=== PATIENT | male | born 1965 | race Caucasian/White ===

== ENCOUNTER 2020-06-08 21:47 | Inpatient (IN) | payer MEDICAID, OTHER ==
[~2020-06-08] VITALS: Ht 170 cm; Wt 101.3 kg
[2020-06-08] MEDS ORDERED: LACTATED RINGERS 1,000 ML IV ONE ×3 (21:52→22:15)
[2020-06-08] MEDS ORDERED: morphine INJ 10 MG/ML 1ML (SYR OR VIAL) ONE (22:00)
[2020-06-08] MEDS ORDERED: methylPREDNISolone 125 MG (Solu-MEDROL) VIAL ONE (22:00)
[2020-06-08] MEDS ORDERED: morphine INJ 10 MG/ML 1ML (SYR OR VIAL) IVP STA (22:03)
[2020-06-08] MEDS ORDERED: RT-ALBUTEROL SULF 2.5 MG/3 ML PRE-MIX VIAL INH STA (22:03)
--- NOTE | 2020-06-08 22:08 | ED Respiratory ---
General Stated Complaint: COVID SYMPTOMS Source: patient Exam Limitations: no limitations History of Present Illness Date Seen by Provider: Jun 08, 2020 Time Seen by Provider: 21:33 Initial Comments Patient presents to ER by EMS from home with chief complaint of shortness of breath, wheezing, nonproductive cough nausea without vomiting and a few episodes of diarrhea starting this afternoon. He is not having any nausea presently. EMS heard wheezing bilaterally so we gave him a dose of albuterol en route. They were unable to obtain an IV site. Patient says he has had one stent placed in the past but is no longer on Plavix or aspirin. 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 He recently moved to the area a month ago. He has not established primary care yet. He's had chills and subjective fevers today. No dysuria. He smokes about 2 packs a day and has a history of COPD. He was post to be on CPAP to sleep at night but did not tolerated secondary to it frequently leaking fluid all over him. He has not been wearing it for the past year or so. He says he has pain in the right side of his chest on deep inspiration. Allergies and Home Medications Allergies Coded Allergies: No Known Drug Allergies (Unverified , 06/08/20) Patient Home Medication List Home Medication List Reviewed: Yes Review of Systems Review of Systems Constitutional: chills, fever, malaise EENTM: No ear discharge, No ear pain Respiratory: cough; No phlegm; short of breath, wheezing Cardiovascular: No chest pain, No palpitations Gastrointestinal: No abdominal pain, No dysphagia, No loss of appetite Genitourinary: No discharge, No dysuria Musculoskeletal: No back pain, No joint pain Skin: No pruritus, No rash Psychiatric/Neurological: Denies Headache, Denies Numbness All Other Systems Reviewed Negative Unless Noted: Yes Past Gxcwzcy-Xavyzq-[id number] Hx Patient Social History Alcohol Use: Denies Use Recreational Drug Use: No Smoking Status: Current Everyday Smoker Type Used: Cigarettes (2 ppd) Physical Exam Vital Signs - First Documented 06/08/20 21:50 Temp 38.1 Pulse 100 Resp 30 B/P (MAP) 120/70 (87) Pulse Ox 97 O2 Delivery Nasal Cannula O2 Flow Rate 2.00 Capillary Refill : Height: '" Weight: lbs. oz. kg; BMI Method: General Appearance: WD/WN, obese Eyes: Bilateral Eye Normal Inspection, Bilateral Eye PERRL, Bilateral Eye EOMI HEENT: PERRL/EOMI, normal ENT inspection, pharynx normal Neck: full range of motion, supple, normal inspection Respiratory: respiratory distress (35 breaths per minute), decreased breath s ounds (right), accessory muscle use, wheezing (left worse than right) Cardiovascular: normal peripheral pulses, regular rate, rhythm Gastrointestinal: normal bowel sounds, non tender, soft Neurologic/Psychiatric: no motor/sensory deficits, alert, normal mood/affect, oriented x 3 Skin: normal color, warm/dry Focused Exam Sepsis Stage: Severe Sepsis Possible Source: Pulmonary Lactate Level 06/08/20 21:55: Lactic Acid Level 3.26*H Time of Focused Exam: 23:30 Respiratory: No Accessory Muscle Use, Respiratory Distress (mild on 2l 98%), Wheezing Cardiovascular: Regular Rate, Rhythm, No Edema, Normal Peripheral Pulses Capillary Refill: Less Than 3 Seconds Peripheral Pulses: 2+ Radial Pulses (R), 2+ Radial Pulses (L) Skin: normal color, warm/dry Lactic Acid Level Laboratory Tests Test 06/08/20 21:55 Lactic Acid Level 3.26 MMOL/L (0.50-2.00) *H Within 3hrs of presentation: Admin fluids, Admin ABX, Blood cultures prior to ABX's, Focus exam, Lactate level Progress/Results/Core Measures Suspected Sepsis SIRS Temperature: Pulse: Respiratory Rate: Laboratory Tests 06/08/20 21:55: White Blood Count 15.4H Blood Pressure / Mean: 06/08/20 21:55: Lactic Acid Level 3.26*H Laboratory Tests 06/08/20 21:55: Creatinine 0.98, INR Comment 1.0, Platelet Count 304, Total Bilirubin 0.9 Results/Orders Lab Results Laboratory Tests Test 06/08/20 21:55 06/08/20 22:07 06/08/20 22:22 Range/Units White Blood Count 15.4 H 4.3-11.0 10^3/uL Red Blood Count 4.50 4.30-5.52 10^6/uL Hemoglobin 14.3 13.3-17.7 g/dL Hematocrit 42 40-54 % Mean Corpuscular Volume 93 80-99 fL Mean Corpuscular Hemoglobin 32 25-34 pg Mean Corpuscular Hemoglobin Concent 34 32-36 g/dL Red Cell Distribution Width 13.0 10.0-14.5 % Platelet Count 304 130-400 10^3/uL Mean Platelet Volume 9.4 9.0-12.2 fL Immature Granulocyte % (Auto) 0 % Neutrophils (%) (Auto) 86 H 42-75 % Lymphocytes (%) (Auto) 7 L 12-44 % Monocytes (%) (Auto) 5 0-12 % Eosinophils (%) (Auto) 1 0-10 % Basophils (%) (Auto) 0 0-10 % Neutrophils # (Auto) 13.3 H 1.8-7.8 10^3/uL Lymphocytes # (Auto) 1.1 1.0-4.0 10^3/uL Monocytes # (Auto) 0.8 0.0-1.0 10^3/uL Eosinophils # (Auto) 0.2 0.0-0.3 10^3/uL Basophils # (Auto) 0.0 0.0-0.1 10^3/uL Immature Granulocyte # (Auto) 0.1 0.0-0.1 10^3/uL Neutrophils % (Manual) 80 % Lymphocytes % (Manual) 5 % Monocytes % (Manual) 3 % Eosinophils % (Manual) 2 % Basophils % (Manual) 0 % Band Neutrophils 8 % Reactive Lymphocytes 2 % Rouleau SLIGHT Prothrombin Time 13.8 12.2-14.7 SEC INR Comment 1.0 0.8-1.4 Activated Partial Thromboplast Time 29 24-35 SEC Sodium Level 129 L 135-145 MMOL/L Potassium Level 3.3 L 3.6-5.0 MMOL/L Chloride Level 94 L 98-107 MMOL/L Carbon Dioxide Level 21 21-32 MMOL/L Anion Gap 14 5-14 MMOL/L Blood Urea Nitrogen 14 7-18 MG/DL Creatinine 0.98 0.60-1.30 MG/DL Estimat Glomerular Filtration Rate > 60 BUN/Creatinine Ratio 14 Glucose Level 233 H 70-105 MG/DL Lactic Acid Level 3.26 *H 0.50-2.00 MMOL/L Calcium Level 8.8 8.5-10.1 MG/DL Corrected Calcium 8.9 8.5-10.1 MG/DL Magnesium Level 1.6 1.6-2.4 MG/DL Total Bilirubin 0.9 0.1-1.0 MG/DL Aspartate Amino Transf (AST/SGOT) 21 5-34 U/L Alanine Aminotransferase (ALT/SGPT) 17 0-55 U/L Alkaline Phosphatase 80 40-136 U/L Troponin I < 0.028 <0.028 NG/ML Total Protein 6.8 6.4-8.2 GM/DL Albumin 3.9 3.2-4.5 GM/DL Coronavirus 2019 (EVANS) Negative Negative Blood Gas Puncture Site RT RAD Blood Gas Patient Temperature 38.1 Arterial Blood pH 7.37 7.37-7.43 Arterial Blood Partial Pressure CO2 44 35-45 MMHG Arterial Blood Partial Pressure O2 133 H 79-93 MMHG Arterial Blood HCO3 24 23-27 MMOL/L Arterial Blood Total CO2 25.6 21.0-31.0 MMOL/L Arterial Blood Oxygen Saturation 99 94-100 % Arterial Blood Base Excess -0.1 -2.5-2.5 MMOL/L Kurt Test POS Blood Gas Ventilator Setting NO Blood Gas Inspired Oxygen 2L Micro Results Microbiology 06/08/20 Influenza Types A,B Antigen (KATIUSKA) - Final, Complete My Orders Orders - VIKAS SAVAGE Lactated Ringers (Lr 1000 Ml Iv Solution (06/08/20 21:52) Covid 19 Inhouse Test (06/08/20 22:01) Influenza A And B Antigens (06/08/20 22:01) Morphine Injection (Morphine Injection (06/08/20 22:00) Methylprednisolone Sod Succ (Solu-Medrol (06/08/20 22:00) Cbc With Automated Diff (06/08/20 22:03) Comprehensive Metabolic Panel (06/08/20 22:03) Blood Culture (06/08/20 22:03) Sputum Culture (06/08/20 22:03) Urinalysis (06/08/20 22:03) Urine Culture (06/08/20 22:03) Protime With Inr (06/08/20 22:03) Partial Thromboplastin Time (06/08/20 22:03) Chest 1 View, Ap/Pa Only (06/08/20 22:03) Ed Iv/Invasive Line Start (06/08/20 22:03) Ed Iv/Invasive Line Start (06/08/20 22:03) Ekg Tracing (06/08/20 22:03) Troponin I (12/3/20 22:03) Vital Signs Adult Sepsis Patie Q15M (06/08/20 22:03) O2 (06/08/20 22:03) Remove Rings In Anticipation O (06/08/20 22:03) Lactic Acid Analyzer (06/08/20 22:03) Lactated Ringers (Lr 1000 Ml Iv Solution (06/08/20 22:15) Lactated Ringers (Lr 1000 Ml Iv Solution (06/08/20 22:15) Morphine Injection (Morphine Injection (06/08/20 22:03) Methylprednisolone Sod Succ (Solu-Medrol (06/08/20 22:15) Albuterol Pre-Mix Nebs (Rt) (Proventil (06/08/20 22:03) Albuterol/Ipra Inhalation Soln (Duoneb I (06/08/20 22:15) Rt Request For Service (06/08/20 22:03) Svn Small Volume Nebulizer (06/08/20 22:03) Arterial Blood Gas (06/08/20 22:08) Aspirin Chewable Tablet (Baby Aspirin Ch (06/08/20 22:15) Acetaminophen Tablet (Tylenol Tablet) (06/08/20 22:15) Aspirin Tablet (Aspirin Tablet) (06/08/20 22:12) Manual Differential (06/08/20 21:55) Ed Iv/Invasive Line Start (06/08/20 22:35) Ns Iv 1000 Ml (Sodium Chloride 0.9%) (06/08/20 22:45) Magnesium (06/08/20 22:36) Cefepime Injection (Maxipime Injection) (06/08/20 23:15) Vancomycin Injection (Vancomycin Injecti (06/08/20 23:15) Medications Given in ED Current Medications Medications Dose Ordered Sig/Parul Route Start Time Stop Time Status Last Admin Dose Admin Acetaminophen 1,000 mg ONCE ONCE PO 06/08/20 22:15 06/08/20 22:16 DC 06/08/20 22:19 1,000 MG Aspirin 324 mg ONCE ONCE PO 06/08/20 22:15 06/08/20 22:16 DC 06/08/20 22:16 324 MG Lactated Ringer's 1,000 ml @ 0 mls/hr Q0M ONCE IV 12/3/20 22:15 06/08/20 22:16 DC 06/08/20 22:10 999 MLS/HR Methylprednisolone Sodium Succinate 125 mg ONCE ONCE IVP 06/08/20 22:15 06/08/20 22:16 DC 06/08/20 22:09 125 MG Vital Signs/I&O 06/08/20 06/08/20 06/08/20 06/08/20 21:50 21:55 22:19 22:43 Temp 38.1 38.1 Pulse 100 Resp 30 B/P (MAP) 120/70 (87) Pulse Ox 97 97 98 O2 Delivery Nasal Cannula Nasal Cannula O2 Flow Rate 2.00 2.00 6.00 06/08/20 23:00 Temp 37.6 Pulse 105 Resp 24 B/P (MAP) 113/66 Pulse Ox 98 O2 Delivery Nasal Cannula Capillary Refill : Progress Note : Time: 23:02 Progress Note Patient's oxygen sats were 93-94% on room air after an albuterol by EMS on route. We put him on 2 L for comfort since he was tachypneic obtained an ABG and give him an hour-long breathing treatment. When that is done we'll put him on CPAP to sleep tonight. ABG does not look terrible he has mild retention of CO2 but has not caused him to be acidotic yet. Aspirin and Tylenol were given for his heart and fever. His chest pain appears to be pleuritic and related to deep inspiration but with his coronary history we will go ahead and work him up for this at the same time with a troponin and BNP. Because of his fever suspect influenza or COVID-19 versus pneumonia. Because of his elevated lactic acid and modest white cell count we will also cover him with broad-spectrum antibiotics against pneumonia. ECG Initial ECG Impression Date: Jun 08, 2020 Initial ECG Impression Time: 22:11 Initial ECG Rate: 110 Initial ECG Rhythm: S.Tach Initial ECG Intervals: QT (471) Initial ECG Impression: Nonspecific Changes Initial ECG Comparisson: No Previous ECG Available Comment Frequent PVCs. No clinically relevant ST changes. Sinus tachycardia. Prolonged QTC. Diagnostic Imaging Diagonstic Imaging: Xray Plain Films/CT/US/NM/MRI: chest Reviewed: Reviewed by Me Departure Communication (Admissions) Time/Spoke to Admitting Phy: 23:20 Discussed the case with Dr. Jose and she agrees to take on the case in the ICU. She agrees with broad-spectrum antibiotics, Solu-Medrol, eICU consultation, delta troponins. Pending send out COVID-19. Impression Primary Impression: Pneumonia Qualified Codes: J18.9 - Pneumonia, unspecified organism Additional Impressions: Person under investigation for COVID-19 Acute on chronic respiratory failure with hypoxemia COPD exacerbation Chest pain made worse by breathing Severe sepsis Disposition: ADMITTED INPATIENT Condition: Stable Admissions Decision to Admit Reason: Admit from ER (General) Decision to Admit/Date: Jun 08, 2020 Time/Decision to Admit Time: 22:41 VIKAS SAVAGE Jun 08, 2020 22:08
[2020-06-08 22:10] LABS: BASOPHILS % (AUTO) 0 % (0-10); EOSINOPHILS # (AUTO) 0.2 10^3/uL (0.0-0.3); EOSINOPHILS % (AUTO) 1 % (0-10); HEMATOCRIT 42 % (40-54); HEMOGLOBIN 14.3 g/dL (13.3-17.7); LYMPHOCYTES # (AUTO) 1.1 10^3/uL (1.0-4.0); LYMPHOCYTES % (AUTO) 7 % (12-44); MEAN CORPUSCULAR HEMOGLOBIN 32 pg (25-34); MEAN CORPUSCULAR HGB CONC 34 g/dL (32-36); MEAN CORPUSCULAR VOLUME 93 fL (80-99); MEAN PLATELET VOLUME 9.4 fL (9.0-12.2); MONOCYTES # (AUTO) 0.8 10^3/uL (0.0-1.0); MONOCYTES % (AUTO) 5 % (0-12); NEUTROPHILS # (AUTO) 13.3 10^3/uL (1.8-7.8); NEUTROPHILS % (AUTO) 86 % (42-75); PLATELET COUNT 304 10^3/uL (130-400); WHITE BLOOD COUNT 15.4 10^3/uL (4.3-11.0)
[2020-06-08] MEDS ORDERED: ASPIRIN 325 MG (5 GR) TABLET ONE (22:12)
[2020-06-08] MEDS ORDERED: RT-ALBUTEROL/IPRATROPIUM 3 ML (DUONEB) VIAL INH ONE (22:15)
[2020-06-08] MEDS ORDERED: ASPIRIN 81 MG CHEW (CHILDREN'S ASA) PO ONE (22:15)
[2020-06-08] MEDS ORDERED: ACETAMINOPHEN 500 MG TAB (TYLENOL) PO ONE (22:15)
[2020-06-08] MEDS ORDERED: methylPREDNISolone 125 MG (Solu-MEDROL) VIAL IVP ONE (22:15)
[2020-06-08 22:19] LABS: PROTHROMBIN TIME PATIENT 13.8 SEC (12.2-14.7)
[2020-06-08 22:30] LABS: ABG BASE EXCESS -0.1 MMOL/L (-2.5-2.5); ABG OXYGEN SATURATION 99 % (94-100); ABG PCO2 44 MMHG (35-45); ABG PH 7.37 (7.37-7.43); ABG PO2 133 MMHG (79-93); ABG TCO2 25.6 MMOL/L (21.0-31.0)
[2020-06-08 22:31] LABS: ALANINE AMINOTRANSFERASE 17 U/L (0-55); ALBUMIN 3.9 GM/DL (3.2-4.5); ALKALINE PHOSPHATASE 80 U/L (40-136); BILIRUBIN,TOTAL 0.9 MG/DL (0.1-1.0); BUN/CREATININE RATIO 14; CALCIUM 8.8 MG/DL (8.5-10.1); CARBON DIOXIDE 21 MMOL/L (21-32); CHLORIDE 94 MMOL/L (98-107); CREATININE SERUM 0.98 MG/DL (0.60-1.30); GFR ESTIMATED > 60; GLUCOSE 233 MG/DL (70-105); POTASSIUM 3.3 MMOL/L (3.6-5.0); SODIUM 129 MMOL/L (135-145); TOTAL PROTEIN 6.8 GM/DL (6.4-8.2)
[2020-06-08 22:33] LABS: BAND NEUTROPHILS 8 %; BASOPHILS % (MANUAL) 0 %; EOSINOPHILS % (MANUAL) 2 %; LYMPHOCYTES % (MANUAL) 5 %; MONOCYTES % (MANUAL) 3 %; NEUTROPHILS % (MANUAL) 80 %; REACTIVE LYMPHOCYTES 2 %; ROULEAUX SLIGHT
[2020-06-08 22:41] LABS: ALLENS TEST POS; INSPIRED O2 2L; PATIENT TEMP 38.1; VENTILATOR NO
[2020-06-08] MEDS ORDERED: NS IV 1000 ML 1,000 ML IV SCH (22:45)
[2020-06-08] MEDS ORDERED: CEFEPIME INJECTION 1,000 MG in WATER (STERILE) FOR INJECTION 10 ML IV ONE (23:15)
[2020-06-08] MEDS: VANCOMYCIN INJECTION 1,000 MG in NS (IVPB) 250 ML IV SCH (23:32)
[2020-06-08 23:52] LABS: BILIRUBIN,URINE NEGATIVE (NEGATIVE); CLARITY,URINE CLEAR; COLOR,URINE YELLOW; GLUCOSE, URINE (UA) 1+ (NEGATIVE); KETONES,URINE NEGATIVE (NEGATIVE); LEUKOCYTE ESTERASE ,URINE NEGATIVE (NEGATIVE); NITRITE,URINE NEGATIVE (NEGATIVE); PROTEIN,URINE NEGATIVE (NEGATIVE)
[2020-06-09 00:02] LABS: AMORPHOUS SEDIMENT,UR RARE AMOR URATES /LPF; BACTERIA,URINE TRACE /HPF; RBC,URINE 0-2 /HPF; WBC,URINE 0-2 /HPF
[2020-06-09] MEDS ORDERED: ONDANSETRON 4 MG/2 ML (SDV) Z0FRAN ONE (00:37)
[2020-06-09] MEDS ORDERED: VANCOMYCIN 1000 MG/VIAL ONE (00:45)
[2020-06-09] MEDS ORDERED: ONDANSETRON 4 MG/2 ML (SDV) Z0FRAN IVP ONE (00:45)
[2020-06-09] MEDS ORDERED: NS (IVPB) 250 ML ONE (00:45)
[2020-06-09] MEDS: VANCOMYCIN INJECTION 1,000 MG in NS (IVPB) 250 ML IV SCH (01:00)
--- NOTE | 2020-06-09 01:15 | NUR ---
Pt admitted to icu rm 5 from e.d. by wheelchair for copd exacerbation, pneumonia, covid PUI, sepsis, acute on chronic renal failure, hypoxia. pt transferred to bed with sba x1. monitors applied, room/unit orientation provided. pt given admission booklet et. demonstrated bed/call light use. no questions at this time.
[2020-06-09 01:17] VITALS: BP 113/69
[2020-06-09] MEDS ORDERED: ONDANSETRON 4 MG/2 ML (SDV) Z0FRAN IVP PRN (01:30)
[2020-06-09] MEDS ORDERED: ACETAMINOPHEN 500 MG TAB (TYLENOL) PO PRN (01:30)
[2020-06-09] MEDS: LACTATED RINGERS 1,000 ML IV SCH ×4 (03:53→22:45)
--- NOTE | 2020-06-09 03:56 | Pulmonary Consultation ---
XOCHITL AVINA,MED STUDENT 06/09/20 0356: History of Present Illness History of Present Illness Date Seen by Provider: Jun 09, 2020 Time Seen by Provider: 03:20 Date of Admission 06/08/20 History of Present Illness Patient is 55yo male who presented to [facility] ED via EMS c/o SOB, wheezing, nonproductive cough, nausea, and R sided chest pain that began yesterday afternoon 06/08. Patient also reported chills and subjective fevers. He has a history of COPD and admits smoking 2 PPD, and has worn a CPAP at night in the past but has not in the last year. EMS gave albuterol due to wheezing, and SpO2 was 93-94%. He was given a breathing treatment in the ED and placed on 2L oxygen. Labs revealed an elevated WBC and lactic acid, so he was started on vanc and cefepime. He also reported a history of one stent placed but is not currently on antiplatelet therapy, so troponin was obtained, which was negative. SpO2 is currently 93-95% on room air. Allergies and Home Medications Allergies Coded Allergies: No Known Drug Allergies (Unverified , 06/08/20) Home Medications Albuterol Sulfate 1 Puff Puff, 2 PUFF INH Q4H PRN for SHORTNESS OF BREATH, (Reported) Aspirin 81 Mg Tab.chew, 81 MG PO DAILY, (Reported) Clonazepam 1 Mg Tablet, 0.5 MG PO DAILY, (Reported) Clonazepam 1 Mg Tablet, 2 MG PO HS, (Reported) TAKES 2 (1MG) TABS Diclofenac Sodium 100 Gm Gel..gram., 2 GM TD TID PRN for PAIN-BREAKTHROUGH, (Reported) Duloxetine HCl 60 Mg Capsule.dr, 60 MG PO HS, (Reported) Fenofibrate Nanocrystallized 48 Mg Tablet, 48 MG PO DAILY, (Reported) Hydrochlorothiazide 12.5 Mg Tablet, 12.5 MG PO DAILY, (Reported) Levetiracetam 500 Mg Tablet, 500 MG PO BID, (Reported) Levothyroxine Sodium 112 Mcg Tablet, 112 MCG PO DAILY, (Reported) Lisinopril 20 Mg Tablet, 20 MG PO DAILY, (Reported) Metoprolol Tartrate 25 Mg Tablet, 25 MG PO BID, (Reported) Mometasone/Formoterol 13 Gm Hfa.aer.ad, 2 PUFF INH BID, (Reported) Oxycodone HCl 30 Mg Tablet, 30 MG PO Q6H, (Reported) Potassium Chloride 10 Meq Tab.er.prt, 10 MEQ PO DAILY, (Reported) Tamsulosin HCl 0.4 Mg Cap, 0.4 MG PO DAILY, (Reported) Thiamine HCl 100 Mg Tablet, 100 MG PO DAILY, (Reported) Tiotropium [place] 1 Inh Aerp, 1 PUFF INH DAILY, (Reported) Past [id number] Hx Patient Social History Alcohol Use: Denies Use Recreational Drug Use: No Smoking Status: Current Everyday Smoker Type Used: Cigarettes (2 ppd) Recent Foreign Travel: No Contact w/Someone Who Travel: No Recent Infectious Disease Expo: No Recent Hopitalizations: No Seasonal Allergies Seasonal Allergies: No Past Medical History Surgeries: No Respiratory: Yes COPD Cardiac: Yes Coronary Artery Disease, Hypertension Neurological: No Genitourinary: No Gastrointestinal: No Musculoskeletal: No Endocrine: No HEENT: No Cancer: No Psychosocial: No Integumentary: No Blood Disorders: No Sepsis Event Evaluation Height, Weight, BMI Height: '" Weight: lbs. oz. kg; 34.00 BMI Method: Exam Exam Vital Signs Date Time Temp Pulse Resp B/P (MAP) Pulse Ox O2 Delivery O2 Flow Rate FiO2 06/09/20 01:23 95 Room Air 06/09/20 01:18 36.1 90 20 113/69 93 Room Air 06/09/20 01:17 36.1 90 20 113/69 (84) 93 Room Air 06/09/20 01:15 86 06/09/20 00:06 90 20 115/64 95 Nasal Cannula 06/08/20 23:47 36.7 110 16 115/64 98 Nasal Cannula 2.00 06/08/20 23:38 36.7 06/08/20 23:00 37.6 105 24 113/66 98 Nasal Cannula 06/08/20 22:43 98 6.00 06/08/20 22:19 38.1 06/08/20 21:55 97 Nasal Cannula 2.00 06/08/20 21:50 38.1 100 30 120/70 (87) 97 Nasal Cannula 2.00 I & O 06/09/20 07:00 Intake Total 2410 ml Output Total 950 ml Balance 1460 ml Height & Weight Height: '" Weight: lbs. oz. kg; 34.00 BMI Method: Respiratory: No Accessory Muscle Use, Respiratory Distress (mild on 2l 98%), Wheezing Cardiovascular: Regular Rate, Rhythm, No Edema, Normal Peripheral Pulses Capillary Refill: Less Than 3 Seconds Peripheral Pulses: 2+ Radial Pulses (R), 2+ Radial Pulses (L) Gastrointestinal: normal bowel sounds, non tender, soft Results Lab Laboratory Tests 06/08/20 21:55 GEORGINA ALANIZ 06/09/20 1045: Allergies and Home Medications Allergies Coded Allergies: No Known Drug Allergies (Unverified , 06/08/20) Home Medications Albuterol Sulfate 1 Puff Puff, 2 PUFF INH Q4H PRN for SHORTNESS OF BREATH, (Reported) Aspirin 81 Mg Tab.chew, 81 MG PO DAILY, (Reported) Clonazepam 1 Mg Tablet, 0.5 MG PO DAILY, (Reported) Clonazepam 1 Mg Tablet, 2 MG PO HS, (Reported) TAKES 2 (1MG) TABS Diclofenac Sodium 100 Gm Gel..gram., 2 GM TD TID PRN for PAIN-BREAKTHROUGH, (Reported) Duloxetine HCl 60 Mg Capsule.dr, 60 MG PO HS, (Reported) Fenofibrate Nanocrystallized 48 Mg Tablet, 48 MG PO DAILY, (Reported) Hydrochlorothiazide 12.5 Mg Tablet, 12.5 MG PO DAILY, (Reported) Levetiracetam 500 Mg Tablet, 500 MG PO BID, (Reported) Levothyroxine Sodium 112 Mcg Tablet, 112 MCG PO DAILY, (Reported) Lisinopril 20 Mg Tablet, 20 MG PO DAILY, (Reported) Metoprolol Tartrate 25 Mg Tablet, 25 MG PO BID, (Reported) Mometasone/Formoterol 13 Gm Hfa.aer.ad, 2 PUFF INH BID, (Reported) Oxycodone HCl 30 Mg Tablet, 30 MG PO Q6H, (Reported) Potassium Chloride 10 Meq Tab.er.prt, 10 MEQ PO DAILY, (Reported) Tamsulosin HCl 0.4 Mg Cap, 0.4 MG PO DAILY, (Reported) Thiamine HCl 100 Mg Tablet, 100 MG PO DAILY, (Reported) Tiotropium [place] 1 Inh Aerp, 1 PUFF INH DAILY, (Reported) Assessment/Plan Assessment/Plan PNA with severe sepsis - Continue Vanco and Cefepime for now -IVF -Monitor -R/o COVID COPD exacerbation -Solumedrol -Add advair and albuterol Ischemic cardiopmyopathy HTN CAD Alcoholic abuse with h/o pancreatitis Hyponatremia Monitor Tobacco abuse -Education XOCHITL AVINA,MED STUDENT Jun 09, 2020 03:56 GEORGINA ALANIZ DO Jun 09, 2020 10:45
[2020-06-09 04:23] LABS: BASOPHILS % (AUTO) 0 % (0-10); HEMOGLOBIN 13.1 g/dL (13.3-17.7); LYMPHOCYTES % (AUTO) 4 % (12-44); NEUTROPHILS % (AUTO) 95 % (42-75)
[2020-06-09 04:25] LABS: EOSINOPHILS % (AUTO) 0 % (0-10); HEMATOCRIT 39 % (40-54); LYMPHOCYTES # (AUTO) 0.6 10^3/uL (1.0-4.0); MEAN CORPUSCULAR HEMOGLOBIN 32 pg (25-34); MEAN CORPUSCULAR HGB CONC 34 g/dL (32-36); MEAN CORPUSCULAR VOLUME 93 fL (80-99); MEAN PLATELET VOLUME 9.7 fL (9.0-12.2); MONOCYTES # (AUTO) 0.1 10^3/uL (0.0-1.0); MONOCYTES % (AUTO) 1 % (0-12); NEUTROPHILS # (AUTO) 14.5 10^3/uL (1.8-7.8); PLATELET COUNT 257 10^3/uL (130-400); WHITE BLOOD COUNT 15.3 10^3/uL (4.3-11.0)
[2020-06-09 04:56] LABS: CHLORIDE 99 MMOL/L (98-107); SODIUM 132 MMOL/L (135-145)
[2020-06-09 04:57] LABS: CALCIUM 7.9 MG/DL (8.5-10.1)
[2020-06-09 04:58] LABS: GLUCOSE 194 MG/DL (70-105)
[2020-06-09 04:59] LABS: CARBON DIOXIDE 22 MMOL/L (21-32)
[2020-06-09 05:01] LABS: CREATININE SERUM 0.76 MG/DL (0.60-1.30); GFR ESTIMATED > 60; PHOSPHORUS 1.9 MG/DL (2.3-4.7)
[2020-06-09 05:02] LABS: BUN/CREATININE RATIO 13
[2020-06-09] MEDS: POTASSIUM CL 10MEQ/50ML IVPB 50 ML IV SCH (05:22)
[2020-06-09] MEDS: KCL 20 MEQ TAB (K-DUR) PO SCH (05:23)
[2020-06-09] MEDS: MAGNESIUM 1 GM/100 ML IVPB 100 ML IV SCH (05:23)
[2020-06-09] MEDS: methylPREDNISolone 40 MG/ML (Solu-MEDROL) VIAL IV SCH ×4 (05:50→23:24)
[2020-06-09] MEDS: CEFEPIME 1,000 MG/SWFI 10 ML IV PUSH IV SCH ×8 (05:50→23:24)
--- NOTE | 2020-06-09 06:15 | NUR ---
mrsa swab collected/sent.
[2020-06-09] MEDS ORDERED: FLU QUADRIvalent (3YOA+) 60 mcg/0.5 ml 2020-21 (AFLURIA) IM ONE (07:00)
--- NOTE | 2020-06-09 07:00 | Diagnostic Imaging Report ---
EXAMINATION: Chest radiograph, portable AP view. DATE: 06/09/2020 12:15 AM INDICATION: 55-year-old male, shortness of breath and cough. COMPARISON: None. FINDINGS: There is airspace consolidation in the left lung base. Heart size and mediastinal contours are unremarkable. There is no identified pneumothorax. There is no large pleural effusion. There is cervical spine hardware noted. IMPRESSION: 1. Left lower lobe airspace consolidation which may relate to pneumonia, aspiration, or other alveolar consolidative process, and/or atelectasis. Dictated by: Dictated on workstation # [id number]
--- NOTE | 2020-06-09 07:02 | NUR ---
VANCOMYCIN TROUGH DUE 06/10 @ 1000. IF TROUGH IS >20, HOLD DOSE & NOTIFY PHARMACY FOR ADJUSTMENTS.
--- NOTE | 2020-06-09 08:19 | History & Physical-Hospitalist ---
History of Present Illness HPI/Chief Complaint Pt is a 55yoCM with a PMH of COPD, CAD s/p stent, alcoholic liver disease, ischemic cardiomyopathy, HTN, HLD, seizure disorder who presented to the ER due to fever and shortness of breath. He states he has COPD and has some dyspnea on exertion at baseline but was much more dyspneic last night. He also developed a fever of 102.2 at home. On arrival to the ER he remained febrile at 38.1. He was hypoxic and required 6lpm HFNC to maintain oxygen saturation but with an hour long breathing treatment and IV steroids he was able to be taken off oxygen. He reports feeling better this morning but still unable to abluate much without dyspnea. He reports multiple known COVID contacts from 06/03 but that his fever only started yesterday. He was found to have pneumonia on CXR and was admitted to the ICU for further management. Source: patient Date Seen 06/09/20 Time Seen by a Provider: 08:11 Attending Physician Tatiana Jose MD PCP Referring Physician Date of Admission Jun 08, 2020 at 23:15 Home Medications & Allergies Home Medications Reviewed patient Home Medication Reconciliation performed by pharmacy medication reconciliations electromechanical assembly technician and/or nursing. Patients Allergies have been reviewed. Allergies Allergies Coded Allergies No Known Drug Allergies (Tevjikrdxs50/3/20) Past Qfeeemk-Jbniwn-Abpjqc Hx Past Med/Social Hx: Reviewed Nursing Past Med/Soc Hx Patient Social History Alcohol Use: Regular Use (cut back from 30 pack per day x30 years 2-3 weeks ago to 1-2 drinks per day) Recreational Drug Use: No Smoking Status: Current Everyday Smoker Cigaretts per day: 50 Type Used: Cigarettes (2 ppd) Recent Foreign Travel: No Contact w/other who traveled: No Recent Hopitalizations: No Recent Infectious Disease Expo: No Seasonal Allergies Seasonal Allergies: No Past Medical History Surgeries: Cardiac, Coronary Stent Respiratory: COPD Cardiac: Cardiomyopathy, Coronary Artery Disease, Heart Attack, High Chol esterol, Hypertension Neurological: Seizure Disorder Genitourinary: Benign Prostatic Hyperpl Gastrointestinal: Pancreatitis History of Blood Disorders: No Family History Reviewed Nursing Family Hx No Pertinent Family Hx Review of Systems Constitutional: fever, weakness EENTM: no symptoms reported Respiratory: cough, dyspnea on exertion; No orthopnea, No phlegm; short of breath, wheezing Cardiovascular: No chest pain; Hx of Intervention; No palpitations Gastrointestinal: No abdominal pain, No nausea, No vomiting Genitourinary: no symptoms reported Musculoskeletal: no symptoms reported Skin: no symptoms reported Psychiatric/Neurological: No Symptoms Reported Physical Exam Physical Exam Vital Signs Vital Signs - First Documented 06/08/20 21:50 Temp 38.1 Pulse 100 Resp 30 B/P (MAP) 120/70 (87) Pulse Ox 97 O2 Delivery Nasal Cannula O2 Flow Rate 2.00 Capillary Refill : Less Than 3 Seconds Height, Weight, BMI Height: '" Weight: lbs. oz. kg; 34.00 BMI Method: General Appearance: No Apparent Distress, WD/WN, Obese HEENT: PERRL/EOMI, Moist Mucous Membranes; No Scleral Icterus (L), No Scleral Icterus (R) Neck: Normal Inspection, Supple Respiratory: No Accessory Muscle Use, Decreased Breath Sounds, Wheezing (scant expiratory) Cardiovascular: Regular Rate, Rhythm, No JVD, No Murmur, Normal Peripheral Pulses Gastrointestinal: Normal Bowel Sounds, Non Tender, Soft Extremity: Normal Capillary Refill, No Calf Tenderness, No Pedal Edema Neurologic/Psychiatric: Alert, Oriented x3, Normal Mood/Affect Skin: Normal Color, Warm/Dry; No Diaphoresis, No Mottled; Tattoos/Piercings Lymphatic: No Adenopathy Results Results/Procedures Labs Laboratory Tests 06/08/20 21:55 06/09/20 03:55 Patient resulted labs reviewed. Imaging: Reviewed Imaging Report Imaging [facility], [place] NAME: [facility] REC#: [id number] PT STATUS: ADM IN : 1965 PHYSICIAN: VIKAS SAVAGE MD ADMIT DATE: 06/08/20/ICU Draft Date of Exam:06/09/20 CHEST 1 VIEW, AP/PA ONLY EXAMINATION: Chest radiograph, portable AP view. DATE: 06/09/2020 12:15 AM INDICATION: 55-year-old male, shortness of breath and cough. COMPARISON: None. FINDINGS: There is airspace consolidation in the left lung base. Heart size and mediastinal contours are unremarkable. There is no identified pneumothorax. There is no large pleural effusion. There is cervical spine hardware noted. IMPRESSION: 1. Left lower lobe airspace consolidation which may relate to pneumonia, aspiration, or other alveolar consolidative process, and/or atelectasis. Dictated on workstation # [id number] Dict: 06/09/20 0653 Trans: 06/09/20 0700 [facility] [id number] Interpreted by: ROSETTA MORTON MD Electronically signed by: Assessment/Plan Admission Diagnosis Severe Sepsis Admission Status: Inpatient Order (span 2 midnights) Reason for Inpatient Admission: see below Assessment and Plan Severe Sepsis from LLL CAP COVID PUI COPD exacerbation with LRTI Acute hypoxic respiratory failure- resolved Febrile, tachycardiac, and tachypneic on arrival with leukocytosis LLL PNA on CXR Lactic acidosis 3.26, improving Continue IV abx, await cultures Rapid COVID negative, await PCR Given high risk exposure and only 5 days after exposure when test done will repeat PCR if negative Continue solu-medrol Pulm consulted, appreciate recs Ischemic cardiopmyopathy, compensated HTN CAD Reports recent [place] within 6 months that he was "in coma" following Troponin negative Resume home meds when able Alcoholic abuse disorder h/o pancreatitis Hyponatremia Encourage continued weaning of alcohol use Alcohol level drawn from blood on arrival, pending Continue IVF Tobacco abuse Smokes 2-2.5ppd, encouraged cessation Diagnosis/Problems Diagnosis/Problems (1) CAD (coronary artery disease) Qualifiers: Coronary Disease-Associated Artery/Lesion type: [place] artery [place] vs. transplanted heart: [place] heart Associated angina: without angina Qualified Codes: I25.10 - Atherosclerotic heart disease of [place] coronary artery without angina pectoris (2) BPH (benign prostatic hyperplasia) Status: Chronic Qualifiers: Lower urinary tract symptom presence: symptoms present Lower urinary tract symptom detail: unspecified Qualified Codes: N40.1 - Benign prostatic hype rplasia with lower urinary tract symptoms (3) HLD (hyperlipidemia) Status: Chronic Qualifiers: Hyperlipidemia type: unspecified Qualified Codes: E78.5 - Hyperlipidemia, unspecified (4) Hypertension Status: Chronic Qualifiers: Hypertension type: essential hypertension Qualified Codes: I10 - Essential (primary) hypertension (5) Tobacco abuse Status: Chronic (6) Obesity Status: Chronic Qualifiers: Obesity classification: adult class 2 (BMI 35 - 39.9) Body mass index: BMI 35.0-35.9 (7) Hypokalemia Status: Acute (8) Hyponatremia Status: Acute (9) Alcohol abuse Status: Chronic (10) Person under investigation for COVID-19 Status: Acute (11) Acute on chronic respiratory failure with hypoxemia Status: Acute (12) Severe sepsis Status: Acute (13) Pneumonia Status: Acute Qualifiers: Pneumonia type: due to unspecified organism Laterality: unspecified laterality Lung location: unspecified part of lung Qualified Codes: J18.9 - Pneumonia, unspecified organism (14) COPD exacerbation Status: Acute Clinical Quality Measures DVT/VTE Risk/Contraindication: Risk Factor Score Per Nursin RFS Level Per Nursing on Admit: 4+=Very High GILDARDO GILMORE MD Jun 09, 2020 08:19
[2020-06-09] MEDS ORDERED: METO-333 PO (09:56)
[2020-06-09] MEDS ORDERED: LEVO112T55 PO (09:56)
[2020-06-09] MEDS ORDERED: HYDR12.56 PO (09:56)
[2020-06-09] MEDS ORDERED: DULO60CA59 PO (09:56)
[2020-06-09] MEDS ORDERED: THIA100T80 PO (09:56)
[2020-06-09] MEDS ORDERED: RT-ALBUINH INH (09:56)
[2020-06-09] MEDS ORDERED: TIOT18CA2 INH (09:56)
[2020-06-09] MEDS ORDERED: TMSL.4C PO (09:56)
[2020-06-09] MEDS ORDERED: CLON1TAB13 PO ×2 (09:56)
[2020-06-09] MEDS ORDERED: LEVE500T6 PO (09:56)
[2020-06-09] MEDS ORDERED: POTA10TA36 PO (09:56)
[2020-06-09] MEDS ORDERED: OXYC-527 PO (09:56)
[2020-06-09] MEDS ORDERED: ASPI-999 PO (09:56)
[2020-06-09] MEDS ORDERED: MOME13HF INH (09:56)
[2020-06-09] MEDS ORDERED: LISI-552 PO (09:56)
[2020-06-09] MEDS ORDERED: DICL100G31 TD (09:57)
[2020-06-09] MEDS ORDERED: FENO48TA10 PO (09:59)
[2020-06-09] MEDS: VANCOMYCIN 1250 MG/NS 250 ML IVPB IV SCH ×4 (10:03→23:23)
--- NOTE | 2020-06-09 10:08 | NUR ---
SPOKE WITH THE PT (CALLED HIS ROOM PHONE) AND WENT THRU THE EXT MED HISTORY TO COMPLETE THE MED REC WHEN I SPOKE WITH THE PT HE COULDNT REMEMBER ALL THE NAMES OF HIS MEDICATIONS- THE ONLY ONES HE COULD REMEMBER WERE OXYCODONE AND CLONAZEPAM. ACCORDING TO THE PT HE TAKES ALL THE MEDICATIONS HE GETS FROM [facility] AND WHEN I ASKED HIM ABOUT HOW HE TAKES EACH ONE HE REPLIED WITH "WHATEVER IT SAYS ON THE BOTTLE"- FOR THAT REASON I HAVE ENTERED THE DIRECTIONS ON THE MED REC FROM WHAT IS REFLECTED ON THE EXT MED HISTORY. THE FOLLOWING MEDICATIONS LOOK IF THEY ARE PAST DUE HOWEVER THE COLLECTIVE FILLS OVER THE PAST MONTHS SHOWS THE PT MAY NOT ACTUALLY BE PAST DUE: LISINOPRIL 20MG- 12-29-2019 01-17-2020 02-09-2020 03-06-2020 04-12-2020 LEVOTHYROXINE 112MCG- 02-09-2020 03-06-2020 04-12-2020 POTASSIUM ER 10MEQ- 12-29-2019 01-17-2020 02-09-2020 03-06-2020 04-12-2020 FENOFIBRATE 48MG- 12-29-2019 01-17-2020 02-09-2020 03-06-2020 04-12-2020 ALL THE ABOVE FILLS WERE FOR #30/30DS
--- NOTE | 2020-06-09 10:19 | NUR ---
Report called to SUNNY Alvarez.
--- NOTE | 2020-06-09 10:49 | NUR ---
Pt taken to room 430 via bed by LAUREN Sanchez and [place]. Pt tolerated trip well.
[2020-06-09] MEDS ORDERED: CEFEPIME 1 GM/10 ML (MAXIPIME) VIAL ONE ×3 (12:42→23:10)
[2020-06-09] MEDS ORDERED: WATER (STERILE) FOR INJECTION 10 ML ONE ×3 (12:42→23:10)
[2020-06-09] MEDS: ENOXAPARIN 40 MG/0.4 ML (LOVENOX) SYR SC SCH (13:16)
--- NOTE | 2020-06-09 14:13 | Diagnostic Imaging Report ---
INDICATION: PICC line placement Frontal chest obtained at 0153 p.m. is compared to same day at 1212 a.m. There is a new right-sided PICC line with tip overlying the mid SVC. Heart is normal in size. There is improvement in the infiltrate versus atelectasis in the left lung base compared to the prior study. There is calcified granuloma in the right costophrenic angle. There is no pneumothorax or pleural fluid. IMPRESSION: New right-sided PICC line tip overlies mid SVC. There is improvement in the left basilar infiltrate compared to the previous study. There is no new finding otherwise. Dictated by: Dictated on workstation # [id number]
[2020-06-09] MEDS: RT-ALBUTEROL INHALER HFA (VENTOLIN HFA) 18 GM IH SCH ×3 (15:43→19:07)
[2020-06-09 16:03] VITALS: BP 107/54
[2020-06-09] MEDS: ADVAIR HFA 115/21 MCG INHALER 8 GM IH SCH (19:08)
[2020-06-09 23:47] VITALS: BP 131/62
[2020-06-10] MEDS: RT-ALBUTEROL INHALER HFA (VENTOLIN HFA) 18 GM IH SCH ×6 (03:16→21:21)
[2020-06-10] MEDS: LACTATED RINGERS 1,000 ML IV SCH (04:25)
[2020-06-10 05:40] LABS: BASOPHILS % (AUTO) 0 % (0-10); EOSINOPHILS % (AUTO) 0 % (0-10); HEMATOCRIT 37 % (40-54); HEMOGLOBIN 12.5 g/dL (13.3-17.7); LYMPHOCYTES # (AUTO) 1.2 10^3/uL (1.0-4.0); LYMPHOCYTES % (AUTO) 5 % (12-44); MEAN CORPUSCULAR HEMOGLOBIN 32 pg (25-34); MEAN CORPUSCULAR HGB CONC 34 g/dL (32-36); MEAN CORPUSCULAR VOLUME 95 fL (80-99); MEAN PLATELET VOLUME 9.7 fL (9.0-12.2); MONOCYTES # (AUTO) 1.1 10^3/uL (0.0-1.0); MONOCYTES % (AUTO) 5 % (0-12); NEUTROPHILS # (AUTO) 20.6 10^3/uL (1.8-7.8); NEUTROPHILS % (AUTO) 89 % (42-75); PLATELET COUNT 279 10^3/uL (130-400)
[2020-06-10 05:48] LABS: CHLORIDE 104 MMOL/L (98-107); POTASSIUM 4.6 MMOL/L (3.6-5.0); SODIUM 137 MMOL/L (135-145)
[2020-06-10 05:49] LABS: CALCIUM 8.3 MG/DL (8.5-10.1); GLUCOSE 189 MG/DL (70-105)
[2020-06-10 05:51] LABS: CARBON DIOXIDE 23 MMOL/L (21-32)
[2020-06-10 05:53] LABS: CREATININE SERUM 0.77 MG/DL (0.60-1.30); GFR ESTIMATED > 60; PHOSPHORUS 2.4 MG/DL (2.3-4.7)
[2020-06-10 05:54] LABS: BUN/CREATININE RATIO 16
[2020-06-10 05:56] LABS: MAGNESIUM 2.1 MG/DL (1.6-2.4)
[2020-06-10] MEDS: MAGNESIUM 1 GM/100 ML IVPB 100 ML IV SCH (06:04)
[2020-06-10] MEDS: POTASSIUM CL 10MEQ/50ML IVPB 50 ML IV SCH (06:04)
[2020-06-10] MEDS: KCL 20 MEQ TAB (K-DUR) PO SCH (06:04)
[2020-06-10] MEDS ORDERED: WATER (STERILE) FOR INJECTION 10 ML ONE ×2 (06:06→13:13)
[2020-06-10] MEDS ORDERED: CEFEPIME 1 GM/10 ML (MAXIPIME) VIAL ONE ×3 (06:06→14:51)
[2020-06-10] MEDS: methylPREDNISolone 40 MG/ML (Solu-MEDROL) VIAL IV SCH (06:14)
[2020-06-10] MEDS: CEFEPIME 1,000 MG/SWFI 10 ML IV PUSH IV SCH ×6 (06:14→20:33)
[2020-06-10 06:15] LABS: HYPOCHROMASIA MODERATE; LYMPHOCYTES % (MANUAL) 8 %; MICROCYTOSIS SLIGHT; MONOCYTES % (MANUAL) 3 %; NEUTROPHILS % (MANUAL) 89 %; POLYCHROMASIA SLIGHT
[2020-06-10 08:22] VITALS: BP 116/63
[2020-06-10] MEDS: ADVAIR HFA 115/21 MCG INHALER 8 GM IH SCH ×2 (08:25→18:58)
[2020-06-10] MEDS: PANTOPRAZOLE 40 MG (PROTONIX) TAB PO SCH (09:25)
[2020-06-10] MEDS ORDERED: TROUGH ORDER-PHARMACY XX NR (10:00)
[2020-06-10] MEDS ORDERED: DICLOFENAC 1% GEL 100 GM (VOLTAREN) TUBE TOP PRN (12:15)
--- NOTE | 2020-06-10 12:25 | Progress Note - Hospitalist ---
Subjective HPI/CC On Admission Date Seen by Provider: Jun 10, 2020 Time Seen by Provider: 12:19 Pt is a 55yoCM with a PMH of COPD, CAD s/p stent, alcoholic liver disease, ischemic cardiomyopathy, HTN, HLD, seizure disorder who presented to the ER due to fever and shortness of breath. He states he has COPD and has some dyspnea on exertion at baseline but was much more dyspneic last night. He also developed a fever of 102.2 at home. On arrival to the ER he remained febrile at 38.1. He was hypoxic and required 6lpm HFNC to maintain oxygen saturation but with an hour long breathing treatment and IV steroids he was able to be taken off oxygen. He reports feeling better this morning but still unable to abluate much without dyspnea. He reports multiple known COVID contacts from 06/03 but that his fever only started yesterday. He was found to have pneumonia on CXR and was admitted to the ICU for further management. Subjective/Events-last exam Pt reports having a cough and back pain. Complains of chronic back pain from his back incident in 2018. States he takes 30mg oxycodone QID for this. I informed him that this is too much and I won't prescribe that much oxycodone but will increase to 10mg Q4 prn. Focused Exam Lactate Level 06/08/20 23:55: Lactic Acid Level 2.87*H 06/09/20 03:55: Lactic Acid Level 2.10*H 06/09/20 18:30: Lactic Acid Level 1.78 Time of Focused Exam: 23:30 Objective Exam Vital Signs Vital Signs Date Time Temp Pulse Resp B/P (MAP) Pulse Ox O2 Delivery O2 Flow Rate FiO2 06/10/20 08:28 96 Room Air 06/10/20 08:22 36.0 78 20 116/63 (80) 06/08/20 23:47 2.00 Capillary Refill : Less Than 3 Seconds General Appearance: No Apparent Distress, Chronically ill, Obese Respiratory: No Accessory Muscle Use, Wheezing (scant) Cardiovascular: Regular Rate, Rhythm, No Murmur Gastrointestinal: Normal Bowel Sounds, Non Tender, Soft Neurologic/Psychiatric: Alert, Oriented x3 Results/Procedures Lab Laboratory Tests 06/10/20 05:30 Patient resulted labs reviewed. Imaging: Reviewed Imaging Report Assessment/Plan Assessment and Plan Assess & Plan/Chief Complaint Severe Sepsis from LLL CAP COVID PUI COPD exacerbation with LRTI Acute hypoxic respiratory failure- resolved LLL PNA on CXR Lactic acidosis resolved Continue IV abx, await cultures Rapid COVID negative and PCR negative, repeat PCR given exposure Switch to oral prednisone Pulm consulted, appreciate recs DC IVF Ischemic cardiopmyopathy, compensated HTN CAD Reports recent [place] within 6 months that he was "in coma" following Troponin negative Resume home meds Alcoholic abuse disorder h/o pancreatitis Hyponatremia Encourage continued weaning of alcohol use Alcohol level negative Continue IVF Tobacco abuse Smokes 2-2.5ppd, encouraged cessation Chronic Back Pain Continue oxycodone prn DVT PPX: Lovenox Diagnosis/Problems Diagnosis/Problems (1) CAD (coronary artery disease) Qualifiers: Coronary Disease-Associated Artery/Lesion type: [place] artery [place] vs. transplanted heart: [place] heart Associated angina: without angina Qualified Codes: I25.10 - Atherosclerotic heart disease of [place] coronary artery without angina pectoris (2) BPH (benign prostatic hyperplasia) Status: Chronic Qualifiers: Lower urinary tract symptom presence: symptoms present Lower urinary tract symptom detail: unspecified Qualified Codes: N40.1 - Benign prostatic hyperplasia with lower urinary tract symptoms (3) HLD (hyperlipidemia) Status: Chronic Qualifiers: Hyperlipidemia type: unspecified Qualified Codes: E78.5 - Hyperlipidemia, unspecified (4) Hypertension Status: Chronic Qualifiers: Hypertension type: essential hypertension Qualified Codes: I10 - Essential (primary) hypertension (5) Tobacco abuse Status: Chronic (6) Obesity Status: Chronic Qualifiers: Obesity classification: adult class 2 (BMI 35 - 39.9) Body mass index: BMI 35.0-35.9 (7) Hypokalemia Status: Acute (8) Hyponatremia Status: Acute (9) Alcohol abuse Status: Chronic (10) Person under investigation for COVID-19 Status: Acute (11) Acute on chronic respiratory failure with hypoxemia Status: Acute (12) Severe sepsis Status: Acute (13) Pneumonia Status: Acute Qualifiers: Pneumonia type: due to unspecified organism Laterality: unspecified laterality Lung location: unspecified part of lung Qualified Codes: J18.9 - Pneumonia, unspecified organism (14) COPD exacerbation Status: Acute Clinical Quality Measures DVT/VTE Risk/Contraindication: Risk Factor Score Per Nursin RFS Level Per Nursing on Admit: 4+=Very High GILDARDO GILMORE MD Jun 10, 2020 12:25
[2020-06-10] MEDS ORDERED: LACTATED RINGERS 1,000 ML IV ONE (13:28)
[2020-06-10] MEDS: ENOXAPARIN 40 MG/0.4 ML (LOVENOX) SYR SC SCH (13:33)
[2020-06-10] MEDS: HYDROCHLOROTHIAZIDE 12.5 MG (HCTZ) CAP PO SCH (15:17)
[2020-06-10] MEDS: KCL 10 MEQ TAB (MICRO K) PO SCH (15:17)
[2020-06-10] MEDS: lisINopril 20 MG (PRINIVIL) TABLET PO SCH (15:17)
[2020-06-10] MEDS: ASPIRIN 81 MG CHEW (CHILDREN'S ASA) PO SCH (15:17)
[2020-06-10] MEDS: clonazePAM 1 MG (KlonoPIN) TAB PO SCH (15:18)
[2020-06-10] MEDS: THIAMINE 100 MG (VITAMIN B-1) TAB PO SCH (15:18)
[2020-06-10] MEDS: LEVOTHYROXINE 112 MCG (LEVOTHROID) TAB PO SCH (15:18)
[2020-06-10 19:17] VITALS: BP 120/56
[2020-06-10] MEDS: LEVETIRACETAM 500 MG (KEPPRA) TAB PO SCH (20:34)
[2020-06-10] MEDS: meTOprolol TARTRATE 25 MG (LOPRESSOR) TABLET PO SCH (20:34)
[2020-06-10] MEDS ORDERED: NON-FORMULARY MEDICATION 1 EA EA (Mometasone/Formoterol (Dulera 200 Mcg/5 Mcg Inhaler) 2 P INH SCH (21:00)
[2020-06-10] MEDS ORDERED: FENOFIBRATE, MICRO 67 MG (LOFIBRA) CAPSULE PO SCH (21:00)
[2020-06-10] MEDS ORDERED: clonazePAM 1 MG (KlonoPIN) TAB PO SCH (21:00)
[2020-06-10] MEDS ORDERED: DULoxetine 30 MG (CYMBALTA) CAP PO SCH (21:00)
[2020-06-10 23:31] VITALS: BP 138/74
[2020-06-11] MEDS: RT-ALBUTEROL INHALER HFA (VENTOLIN HFA) 18 GM IH SCH ×4 (02:16→15:19)
[2020-06-11] MEDS ORDERED: CEFEPIME 1 GM/10 ML (MAXIPIME) VIAL ONE (03:09)
[2020-06-11] MEDS ORDERED: WATER (STERILE) FOR INJECTION 10 ML ONE (03:09)
[2020-06-11] MEDS: CEFEPIME 1,000 MG/SWFI 10 ML IV PUSH IV SCH ×2 (03:20)
[2020-06-11 06:12] LABS: BASOPHILS % (AUTO) 0 % (0-10); EOSINOPHILS % (AUTO) 0 % (0-10); HEMATOCRIT 38 % (40-54); HEMOGLOBIN 12.4 g/dL (13.3-17.7); LYMPHOCYTES % (AUTO) 14 % (12-44); MEAN CORPUSCULAR HEMOGLOBIN 32 pg (25-34); MEAN CORPUSCULAR HGB CONC 33 g/dL (32-36); MEAN CORPUSCULAR VOLUME 96 fL (80-99); MEAN PLATELET VOLUME 9.6 fL (9.0-12.2); MONOCYTES # (AUTO) 1.2 10^3/uL (0.0-1.0); MONOCYTES % (AUTO) 6 % (0-12); NEUTROPHILS # (AUTO) 16.1 10^3/uL (1.8-7.8); NEUTROPHILS % (AUTO) 78 % (42-75); PLATELET COUNT 304 10^3/uL (130-400); WHITE BLOOD COUNT 20.7 10^3/uL (4.3-11.0)
[2020-06-11 06:40] LABS: CARBON DIOXIDE 25 MMOL/L (21-32); CHLORIDE 105 MMOL/L (98-107); GLUCOSE 82 MG/DL (70-105); POTASSIUM 4.1 MMOL/L (3.6-5.0); SODIUM 141 MMOL/L (135-145)
[2020-06-11 06:46] LABS: BUN/CREATININE RATIO 22; CREATININE SERUM 0.81 MG/DL (0.60-1.30); GFR ESTIMATED > 60; MAGNESIUM 2.1 MG/DL (1.6-2.4); PHOSPHORUS 3.6 MG/DL (2.3-4.7)
[2020-06-11] MEDS: KCL 20 MEQ TAB (K-DUR) PO SCH (06:47)
[2020-06-11] MEDS: POTASSIUM CL 10MEQ/50ML IVPB 50 ML IV SCH (06:47)
[2020-06-11] MEDS: MAGNESIUM 1 GM/100 ML IVPB 100 ML IV SCH (06:48)
[2020-06-11 07:33] VITALS: BP 169/79
[2020-06-11] MEDS ORDERED: UMECLIDINIUM BROMIDE (INCRUSE ELLIPTA) 7'S IH SCH (08:00)
[2020-06-11] MEDS ORDERED: CEFEPIME 1,000 MG/SWFI 10 ML IV PUSH IV SCH ×2 (09:00)
[2020-06-11] MEDS: LEVETIRACETAM 500 MG (KEPPRA) TAB PO SCH (09:23)
[2020-06-11] MEDS: HYDROCHLOROTHIAZIDE 12.5 MG (HCTZ) CAP PO SCH (09:23)
[2020-06-11] MEDS: lisINopril 20 MG (PRINIVIL) TABLET PO SCH (09:23)
[2020-06-11] MEDS: PANTOPRAZOLE 40 MG (PROTONIX) TAB PO SCH (09:23)
[2020-06-11] MEDS: KCL 10 MEQ TAB (MICRO K) PO SCH (09:23)
[2020-06-11] MEDS: meTOprolol TARTRATE 25 MG (LOPRESSOR) TABLET PO SCH (09:23)
[2020-06-11] MEDS: THIAMINE 100 MG (VITAMIN B-1) TAB PO SCH (09:23)
[2020-06-11] MEDS: ASPIRIN 81 MG CHEW (CHILDREN'S ASA) PO SCH (09:24)
[2020-06-11] MEDS: clonazePAM 1 MG (KlonoPIN) TAB PO SCH (09:24)
[2020-06-11] MEDS: LEVOTHYROXINE 112 MCG (LEVOTHROID) TAB PO SCH (09:24)
[2020-06-11] MEDS: ADVAIR HFA 115/21 MCG INHALER 8 GM IH SCH (09:47)
[2020-06-11] MEDS ORDERED: CEPH-507 PO (12:21)
[2020-06-11] MEDS ORDERED: PRED10TA22 PO (12:21)
--- NOTE | 2020-06-11 12:25 | Discharge Inst-Simple/Standard ---
Discharge Inst-Standard Patient Instructions/Follow Up Plan of Care/Instructions/FU: Please continue to take your steroids and antibiotics as I have written. Please see your primary care doctor to continue working to decrease the dose of opoids you are on as these can be very dangerous at this dose mixed with Klonopin. Please follow up with your primary care doctor to follow up this hospital stay. Continue to isolate until you get your COVID test results. Continue to wear a mask in public and maintain social distancing to help slow the spread of coronavirus. Activity as Tolerated: Yes Discharge Diet: Low Sodium Diet Return to The Hospital For: Chest pain, shortness of breath, fever, confusion, weakness, if you feel you are getting worse. GILDARDO GILMORE MD Jun 11, 2020 12:25
--- NOTE | 2020-06-11 15:37 | Discharge Summary ---
Diagnosis/Chief Complaint Date of Admission Jun 08, 2020 at 23:15 Date of Discharge Discharge Date: Jun 11, 2020 Admission Diagnosis Severe Sepsis Primary Care Discharge Diagnosis (1) CAD (coronary artery disease) (2) BPH (benign prostatic hyperplasia) Status: Chronic (3) HLD (hyperlipidemia) Status: Chronic (4) Hypertension Status: Chronic (5) Tobacco abuse Status: Chronic (6) Obesity Status: Chronic (7) Hypokalemia Status: Acute (8) Hyponatremia Status: Acute (9) Alcohol abuse Status: Chronic (10) Person under investigation for COVID-19 Status: Acute (11) Acute on chronic respiratory failure with hypoxemia Status: Acute (12) Severe sepsis Status: Acute (13) Pneumonia Status: Acute (14) COPD exacerbation Status: Acute Discharge Summary Discharge Physical Exam Allergies: Coded Allergies: No Known Drug Allergies (Unverified , 06/08/20) Vitals & I&Os Vital Signs Date Time Temp Pulse Resp B/P (MAP) Pulse Ox O2 Delivery O2 Flow Rate FiO2 06/11/20 15:20 92 Room Air 06/11/20 07:33 36.0 81 16 169/79 (109) 06/08/20 23:47 2.00 General Appearance: No Apparent Distress, Chronically ill, Obese Cardiovascular: Regular Rate, Rhythm, No Murmur Gastrointestinal: Normal Bowel Sounds, Non Tender, Soft Hospital Course patient is a 55-year-old male with past medical history of COPD, CHF, CAD, alcoholic hepatitis, active tobacco use who presented to the emergency department due to shortness of breath. He was found to have a COPD exacerbation secondary to pneumonia. He was treated wit anabiotic M steroid-dependent did very well. He was titrated off all oxygen. He was tested for COVID at this was negative. This test was done on day 5 following exposure though and so repeat PCR was done and is currently pending. I advised him to maintain isolation until his results are back and he is given further instructions. He was offered another day of admission to await results and continue antibiotically but he elected to discharge home today. He is to follow-up with his primary care doctor to follow up this hospital stay. He did request that I refill his prescriptions for him. I informed him I would be happy to write prescriptions to cover until he sees his primary care doctor for his noncontrolled prescriptions but would not refill any controlled medicines. Labs (last 24 hrs) Laboratory Tests 06/11/20 04:30: 06/11/20 05:30: White Blood Count 20.7H, Red Blood Count 3.89L, Hemoglobin 12.4L, Hematocrit 38L , Mean Corpuscular Volume 96, Mean Corpuscular Hemoglobin 32, Mean Corpuscular Hemoglobin Concent 33, Red Cell Distribution Width 13.6, Platelet Count 304, Mean Platelet Volume 9.6, Immature Granulocyte % (Auto) 2, Neutrophils (%) (Auto) 78H, Lymphocytes (%) (Auto) 14, Monocytes (%) (Auto) 6, Eosinophils (%) (Auto) 0, Basophils (%) (Auto) 0, Neutrophils # (Auto) 16.1H, Lymphocytes # (Auto) 3.0, Monocytes # (Auto) 1.2H, Eosinophils # (Auto) 0.0, Basophils # (Auto) 0.0, Immature Granulocyte # (Auto) 0.5H, Sodium Level 141, Potassium Level 4.1, Chloride Level 105, Carbon Dioxide Level 25, Anion Gap 11, Blood Urea Nitrogen 18, Creatinine 0.81, Estimat Glomerular Filtration Rate > 60, BUN/Creatinine Ratio 22, Glucose Level 82, Calcium Level 8.0L, Phosphorus Level 3.6, Magnesium Level 2.1 Microbiology 06/09/20 MRSA Screen - Final, Complete MRSA not isolated 06/08/20 Urine Culture - Final, Complete Streptococcus mitis group 06/08/20 Blood Culture - Preliminary, Resulted No growth Patient resulted labs reviewed. Imaging: Reviewed Imaging Report Discussion & Recommendations Discharge Planning: >30 minutes discharge planning Discharge Home Medications: Active Scripts Active Keflex (Cephalexin) 500 Mg Capsule 500 Mg PO BID Prednisone 10 Mg Tab.ds.pk 10 Mg PO DAILY Take 6 tabs(60mg)daily,decrease by 1 tab(10MG)daily. Reported Fenofibrate (Fenofibrate Nanocrystallized) 48 Mg Tablet 48 Mg PO DAILY Diclofenac Sodium 100 Gm Gel..gram. 2 Gm TD TID PRN Duloxetine HCl 60 Mg Capsule.dr 60 Mg PO HS Spiriva (Tiotropium [place]) 1 Inh Aerp 1 Puff INH DAILY Potassium Chloride 10 Meq Tab.er.prt 10 Meq PO DAILY Levothyroxine Sodium 112 Mcg Tablet 112 Mcg PO DAILY Lisinopril 20 Mg Tablet 20 Mg PO DAILY Flomax (Tamsulosin HCl) 0.4 Mg Cap 0.4 Mg PO DAILY Proair Hfa (Albuterol Sulfate) 1 Puff Puff 2 Puff INH Q4H PRN Dulera 200 Mcg/5 Mcg Inhaler (Mometasone/Formoterol) 13 Gm Hfa.aer.ad 2 Puff INH BID Metoprolol Tartrate 25 Mg Tablet 25 Mg PO BID Oxycodone HCl 30 Mg Tablet 30 Mg PO Q6H Levetiracetam 500 Mg Tablet 500 Mg PO BID Hydrochlorothiazide 12.5 Mg Tablet 12.5 Mg PO DAILY Aspirin 81 Mg Tab.chew 81 Mg PO DAILY Vitamin B-1 (Thiamine HCl) 100 Mg Tablet 100 Mg PO DAILY Clonazepam 1 Mg Tablet 2 Mg PO HS TAKES 2 (1MG) TABS Clonazepam 1 Mg Tablet 0.5 Mg PO DAILY Instructions to patient/family Please see electronic discharge instructions given to patient. Clinical Quality Measures DVT/VTE Risk/Contraindication: Risk Factor Score Per Nursin RFS Level Per Nursing on Admit: 4+=Very High Problem Qualifiers (1) CAD (coronary artery disease): Coronary Disease-Associated Artery/Lesion type: [place] artery [place] vs. transplanted heart: [place] heart Associated angina: without angina Qualified Codes: I25.10 - Atherosclerotic heart disease of [place] coronary artery without angina pectoris (2) BPH (benign prostatic hyperplasia): Lower urinary tract symptom presence: symptoms present Lower urinary tract symptom detail: unspecified Qualified Codes: N40.1 - Benign prostatic hyperplasia with lower urinary tract symptoms (3) HLD (hyperlipidemia): Hyperlipidemia type: unspecified Qualified Codes: E78.5 - Hyperlipidemia, unspecified (4) Hypertension: Hypertension type: essential hypertension Qualified Codes: I10 - Essential (primary) hypertension (5) Obesity: Obesity classification: adult class 2 (BMI 35 - 39.9) Body mass index: BMI 35.0-35.9 (6) Pneumonia: Pneumonia type: due to unspecified organism Laterality: unspecified laterality Lung location: unspecified part of lung Qualified Codes: J18.9 - Pneumonia, unspecified organism GILDARDO GILMORE MD Jun 11, 2020 15:37
[2020-06-11] MEDS ORDERED: TAMSULOSIN 0.4 MG (FLOMAX) CAP PO SCH (18:00)
[2020-06-11 18:47] VITALS: BP 169/79
== END 2020-06-11 17:30 | disposition home or self-care (01) | DRG 871 ==
LOC: ER 21:48 → ICU 23:15 → 4TH 06-09 10:36
PROVIDERS: ADMIT Internal Medicine; ATTEND Internal Medicine
DX: A41.9 Sepsis, unspecified organism (principal); J96.01 Acute respiratory failure with hypoxia; J18.9 Pneumonia, unspecified organism; J44.1 Chronic obstructive pulmonary disease with (acute) exacerbation; E87.1 Hypo-osmolality and hyponatremia; J44.0 Chronic obstructive pulmonary disease with (acute) lower respiratory infection; R65.20 Severe sepsis without septic shock; Z20.828 Contact with and (suspected) exposure to other viral communicable diseases; I25.5 Ischemic cardiomyopathy; I10 Essential (primary) hypertension; I25.10 Atherosclerotic heart disease of native coronary artery without angina pectoris; F17.210 Nicotine dependence, cigarettes, uncomplicated; F10.10 Alcohol abuse, uncomplicated; E78.5 Hyperlipidemia, unspecified; G40.909 Epilepsy, unspecified, not intractable, without status epilepticus; N40.0 Benign prostatic hyperplasia without lower urinary tract symptoms; E66.9 Obesity, unspecified; E87.6 Hypokalemia; Z68.35 Body mass index [BMI] 35.0-35.9, adult
CPT/HCPCS: 36415; 36569; 71045; 76937; 80048; 80053; 80202; 80320; 81000; 82805; 82962; 83605; 83735; 84100; 84484; 85007; 85025; 85027; 85379; 85610; 85730; 87040; 87077; 87081; 87088; 87635; 87804; 93005; 94640; 94760; 99291

== ENCOUNTER 2020-11-09 20:47 | Emergency (ER) | payer MEDICAID ==
[~2020-11-09] VITALS: Ht 170 cm; Wt 98.0 kg
[~2020-11-09 20:47] MED LIST: ASPI-999 PO; CEPH-507 PO; CLON1TAB13 PO; DICL100G31 TD; DULO60CA59 PO; FENO48TA10 PO; HYDR12.56 PO; LEVE500T6 PO; LEVO112T55 PO; LISI20TA26 PO; METO-333 PO; MOME13HF INH; OXYC-527 PO; POTA10TA36 PO; PRED10TA22 PO; RT-ALBUINH INH; THIA100T80 PO; TIOT18CA2 INH; TMSL.4C PO
[2020-11-09] MEDS ORDERED: NITROGLYCERIN 0.4 MG SL TABS BTL 25'S SL PRN (21:15)
[2020-11-09] MEDS ORDERED: ASPIRIN 81 MG CHEW (CHILDREN'S ASA) PO ONE (21:15)
--- NOTE | 2020-11-09 21:38 | Diagnostic Imaging Report ---
INDICATION: Chest pain. EXAMINATION: Frontal chest was obtained at 9:17 p.m. COMPARISON: 06/09/2020. FINDINGS: Heart and mediastinal silhouette are normal in appearance. The lungs are clear. There is no pneumothorax or pleural fluid. IMPRESSION: Negative chest. Dictated by: Dictated on workstation # [id number]
[2020-11-09 21:52] LABS: BASOPHILS % (AUTO) 0 % (0-10); EOSINOPHILS # (AUTO) 0.2 10^3/uL (0.0-0.3); EOSINOPHILS % (AUTO) 2 % (0-10); HEMATOCRIT 47 % (40-54); HEMOGLOBIN 16.1 g/dL (13.3-17.7); LYMPHOCYTES # (AUTO) 2.1 10^3/uL (1.0-4.0); LYMPHOCYTES % (AUTO) 22 % (12-44); MEAN CORPUSCULAR HEMOGLOBIN 31 pg (25-34); MEAN CORPUSCULAR HGB CONC 34 g/dL (32-36); MEAN CORPUSCULAR VOLUME 91 fL (80-99); MEAN PLATELET VOLUME 9.3 fL (9.0-12.2); MONOCYTES # (AUTO) 0.6 10^3/uL (0.0-1.0); MONOCYTES % (AUTO) 6 % (0-12); NEUTROPHILS # (AUTO) 6.4 10^3/uL (1.8-7.8); NEUTROPHILS % (AUTO) 69 % (42-75); PLATELET COUNT 339 10^3/uL (130-400); WHITE BLOOD COUNT 9.3 10^3/uL (4.3-11.0)
[2020-11-09 21:55] LABS: BILIRUBIN,URINE NEGATIVE (NEGATIVE); CLARITY,URINE CLEAR; COLOR,URINE YELLOW; GLUCOSE, URINE (UA) NEGATIVE (NEGATIVE); KETONES,URINE NEGATIVE (NEGATIVE); LEUKOCYTE ESTERASE ,URINE NEGATIVE (NEGATIVE); NITRITE,URINE NEGATIVE (NEGATIVE); PROTEIN,URINE NEGATIVE (NEGATIVE)
--- NOTE | 2020-11-09 22:02 | ED Cardiac General ---
History of Present Illness General Chief Complaint: Chest Pain Stated Complaint: LEFT ARM PAIN/WRIST PAIN/CHEST PAIN/NECK PAIN Nursing Triage Note: PT STATES PAIN THAT STARTED IN HIS LT HAND ABOUT A WEEK AGO, MOVED UP TO HIS SHOULDER, NECK AND IS IN THE LT UPPER CHEST NOW. HX OF 5 AMI'S History of Present Illness NTG SL SCULPTURE CONSERVATOR: No ASA po SCULPTURE CONSERVATOR: No Allergies and Home Medications Allergies Coded Allergies: No Known Drug Allergies (Unverified , 06/08/20) Home Medications Albuterol Sulfate 1 Puff Puff, 2 PUFF INH Q4H PRN for SHORTNESS OF BREATH, (Reported) Aspirin 81 Mg Tab.chew, 81 MG PO DAILY, (Reported) Cephalexin 500 Mg Capsule, 500 MG PO BID Prescribed by: GILDARDO GILMORE on 06/11/20 1221 Clonazepam 1 Mg Tablet, 0.5 MG PO DAILY, (Reported) Clonazepam 1 Mg Tablet, 2 MG PO HS, (Reported) TAKES 2 (1MG) TABS Diclofenac Sodium 100 Gm Gel..gram., 2 GM TD TID PRN for PAIN-BREAKTHROUGH, (Reported) Duloxetine HCl 60 Mg Capsule.dr, 60 MG PO HS, (Reported) Fenofibrate Nanocrystallized 48 Mg Tablet, 48 MG PO DAILY, (Reported) Hydrochlorothiazide 12.5 Mg Tablet, 12.5 MG PO DAILY, (Reported) Levetiracetam 500 Mg Tablet, 500 MG PO BID, (Reported) Levothyroxine Sodium 112 Mcg Tablet, 112 MCG PO DAILY, (Reported) Lisinopril 20 Mg Tablet, 20 MG PO DAILY, (Reported) Metoprolol Tartrate 25 Mg Tablet, 25 MG PO BID, (Reported) Mometasone/Formoterol 13 Gm Hfa.aer.ad, 2 PUFF INH BID, (Reported) Oxycodone HCl 30 Mg Tablet, 30 MG PO Q6H, (Reported) Potassium Chloride 10 Meq Tab.er.prt, 10 MEQ PO DAILY, (Reported) Prednisone 10 Mg Tab.ds.pk, 10 MG PO DAILY Take 6 tabs(60mg)daily,decrease by 1 tab(10MG)daily. Prescribed by: GILDARDO GILMORE on 06/11/20 1221 Tamsulosin HCl 0.4 Mg Cap, 0.4 MG PO DAILY, (Reported) Thiamine HCl 100 Mg Tablet, 100 MG PO DAILY, (Reported) Tiotropium Sidney 1 Inh Aerp, 1 PUFF INH DAILY, (Reported) Past Iqcsslz-Jtuono-Phcksh Hx Patient Social History Alcohol Use: Occasionally Uses Alcohol Beverage of Choice: Beer Type Used: Cigarettes Recent Infectious Disease Expo: No Recent Hopitalizations: Yes (08/2020 FOR COVID) Seasonal Allergies Seasonal Allergies: No Past Medical History Surgeries: Yes (BACK, NECK, BOTH SHOULDERS) Cardiac, Coronary Stent Respiratory: Yes COPD Cardiac: Yes (CHF) Cardiomyopathy, Coronary Artery Disease, Heart Attack, High Cholesterol, Hypertension Neurological: Yes Seizure Disorder Genitourinary: Yes Benign Prostatic Hyperpl Gastrointestinal: Yes Pancreatitis Musculoskeletal: Yes Back Injury, Chronic Back Pain Endocrine: No HEENT: No Cancer: No Psychosocial: Yes Anxiety Integumentary: No Blood Disorders: No Family Medical History No Pertinent Family Hx Physical Exam Vital Signs Vital Signs - First Documented 11/09/20 20:53 Temp 35.3 Pulse 93 Resp 22 B/P (MAP) 167/96 (119) Pulse Ox 99 O2 Delivery Room Air Capillary Refill : Less Than 3 Seconds Height, Weight, BMI Height: '" Weight: lbs. oz. kg; 33.00 BMI Method: Progress/Results/Core Measures Results/Orders Lab Results Laboratory Tests Test 11/09/20 21:40 11/09/20 21:50 Range/Units White Blood Count 9.3 4.3-11.0 10^3/uL Red Blood Count 5.19 4.30-5.52 10^6/uL Hemoglobin 16.1 13.3-17.7 g/dL Hematocrit 47 40-54 % Mean Corpuscular Volume 91 80-99 fL Mean Corpuscular Hemoglobin 31 25-34 pg Mean Corpuscular Hemoglobin Concent 34 32-36 g/dL Red Cell Distribution Width 13.0 10.0-14.5 % Platelet Count 339 130-400 10^3/uL Mean Platelet Volume 9.3 9.0-12.2 fL Immature Granulocyte % (Auto) 0 % Neutrophils (%) (Auto) 69 42-75 % Lymphocytes (%) (Auto) 22 12-44 % Monocytes (%) (Auto) 6 0-12 % Eosinophils (%) (Auto) 2 0-10 % Basophils (%) (Auto) 0 0-10 % Neutrophils # (Auto) 6.4 1.8-7.8 10^3/uL Lymphocytes # (Auto) 2.1 1.0-4.0 10^3/uL Monocytes # (Auto) 0.6 0.0-1.0 10^3/uL Eosinophils # (Auto) 0.2 0.0-0.3 10^3/uL Basophils # (Auto) 0.0 0.0-0.1 10^3/uL Immature Granulocyte # (Auto) 0.0 0.0-0.1 10^3/uL My Orders Orders - ENEIDA MERIDA DO Cbc With Automated Diff (11/09/20 21:) Magnesium (11/09/20 21:) Chest 1 View, Ap/Pa Only (11/09/20:) Ekg Tracing (11/09/20:) Comprehensive Metabolic Panel (11/09/20 21:) Myoglobin Serum (11/09/20:) Protime With Inr (11/09/20:) Partial Thromboplastin Time (11/09/20:) O2 (11/09/20:) Monitor-Rhythm Ecg Trace Only (11/09/20 21:) Ed Iv/Invasive Line Start (11/09/20 21:) Creatine Kinase (11/09/20 21:01) Creatine Kinase Mb (11/09/20 21:01) Lipase (11/09/20 21:01) Amylase (11/09/20 21:01) BNP (11/09/20 21:01) Troponin I (11/09/20 21:01) Nitroglycerin 0.4 Mg Btl 25's (Nitrostat (11/09/20 21:15) Aspirin Chewable Tablet (Baby Aspirin Ch (11/09/20 21:15) Alcohol (11/09/20 21:13) Dilantin (Phenytoin) (11/09/20 21:13) Drug Screen Stat (Urine) (11/09/20 21:13) Ua Culture If Indicated (11/09/20 21:13) Medications Given in ED Current Medications Medications Dose Ordered Sig/Parul Route Start Time Stop Time Status Last Admin Dose Admin Aspirin 324 mg ONCE ONCE PO 11/09/20 21:15 11/09/20 21:16 DC 11/09/20 21:46 324 MG Nitroglycerin 0.4 mg UD PRN SL 11/09/20 21:15 11/09/20 21:46 0.4 MG Vital Signs/I&O 11/09/20 11/09/20 20:53 21:00 Temp 35.3 Pulse 93 Resp 22 B/P (MAP) 167/96 (119) Pulse Ox 99 O2 Delivery Room Air Room Air Blood Pressure Mean: 119 Diagnostic Imaging Comments CXR--PER RADIOLOGIST REPORT AT 2201 FINDINGS: Heart and mediastinal silhouette are normal in appearance. The lungs are clear. There is no pneumothorax or pleural fluid. IMPRESSION: Negative chest. Reviewed: Reviewed by Me Departure Departure-Patient Inst. Referrals: NO,LOCAL PHYSICIAN (PCP/Family) Primary Care Physician ENEIDA MERIDA DO November 09, 2020 22:01
[2020-11-09 22:03] LABS: BACTERIA,URINE TRACE /HPF; SQUAMOUS EPITHELIAL CELL,UR 0-2 /HPF; WBC,URINE RARE /HPF
[2020-11-09 22:06] LABS: AMPHETAMINE SCREEN, URINE POSITIVE (NEGATIVE); BARBITURATE SCREEN URINE NEGATIVE (NEGATIVE); BENZODIAZEPINES SCREEN URINE POSITIVE (NEGATIVE); CANNABINOID SCREEN, URINE NEGATIVE (NEGATIVE); COCAINE SCREEN URINE NEGATIVE (NEGATIVE); METHADONE STAT NEGATIVE (NEGATIVE); METHAMPHETAMINE SCREEN URINE S POSITIVE (NEGATIVE); OPIATE SCREEN URINE NEGATIVE (NEGATIVE); OXYCODONE STAT NEGATIVE (NEGATIVE); PROPOXYPHENE STAT NEGATIVE (NEGATIVE); TRICYCLIC ANTIDEPRESSANTS SCRE NEGATIVE (NEGATIVE)
[2020-11-09 22:07] LABS: PROTHROMBIN TIME PATIENT 13.4 SEC (12.2-14.7)
[2020-11-09 22:10] LABS: ALBUMIN 4.3 GM/DL (3.2-4.5)
[2020-11-09 22:11] LABS: CHLORIDE 101 MMOL/L (98-107); POTASSIUM 3.5 MMOL/L (3.6-5.0); SODIUM 140 MMOL/L (135-145)
[2020-11-09 22:12] LABS: AMYLASE 55 U/L (25-125); CALCIUM 9.3 MG/DL (8.5-10.1)
[2020-11-09 22:13] LABS: GLUCOSE 90 MG/DL (70-105); TOTAL PROTEIN 7.4 GM/DL (6.4-8.2)
[2020-11-09 22:14] LABS: CARBON DIOXIDE 27 MMOL/L (21-32)
[2020-11-09 22:15] LABS: BILIRUBIN,TOTAL 0.8 MG/DL (0.1-1.0)
[2020-11-09 22:16] LABS: ALKALINE PHOSPHATASE 98 U/L (40-136)
[2020-11-09 22:17] LABS: CREATININE SERUM 0.83 MG/DL (0.60-1.30); GFR ESTIMATED > 60
[2020-11-09 22:18] LABS: BUN/CREATININE RATIO 11
[2020-11-09 22:19] LABS: ALANINE AMINOTRANSFERASE 22 U/L (0-55); MAGNESIUM 2.1 MG/DL (1.6-2.4)
[2020-11-09 22:20] LABS: CREATINE KINASE 354 U/L (30-200)
[2020-11-09 22:32] LABS: CREATINE KINASE MB 7.2 NG/ML (<6.6)
[2020-11-09 22:48] LABS: LIPASE 47 U/L (8-78)
[2020-11-09 23:18] VITALS: BP 113/69
== END 2020-11-09 23:18 | disposition left against medical advice (07) ==
LOC: EDUNIT# 20:47 → ER 20:52
DX: R07.9 Chest pain, unspecified (principal); J44.9 Chronic obstructive pulmonary disease, unspecified; I25.2 Old myocardial infarction; I10 Essential (primary) hypertension; E78.00 Pure hypercholesterolemia, unspecified; N40.0 Benign prostatic hyperplasia without lower urinary tract symptoms; G89.29 Other chronic pain; M54.9 Dorsalgia, unspecified; G40.909 Epilepsy, unspecified, not intractable, without status epilepticus; F41.9 Anxiety disorder, unspecified; Z79.82 Long term (current) use of aspirin; Z79.52 Long term (current) use of systemic steroids; Z79.899 Other long term (current) drug therapy; Z79.891 Long term (current) use of opiate analgesic
CPT/HCPCS: 36415; 71045; 80053; 80185; 80306; 80320; 81000; 82150; 82550; 82553; 83690; 83735; 83874; 83880; 84484; 85025; 85610; 85730; 93005; 93041

== ENCOUNTER 2021-03-15 18:33 | Emergency (ER) | payer MEDICAID ==
[~2021-03-15] VITALS: Ht 165 cm; Wt 90.2 kg
[~2021-03-15 18:33] MED LIST changes: +DICL100G13 TD; -DICL100G31 TD
--- NOTE | 2021-03-15 18:55 | Diagnostic Imaging Report ---
INDICATION: Severe headache and seizure. TECHNIQUE: Multiple contiguous axial images were obtained through the brain without the use of intravenous contrast. Auto Exposure Controls were utilized during the CT exam to meet ALARA standards for radiation dose reduction. COMPARISON: There is no prior study for comparison. FINDINGS: There are mild diffuse atrophic changes. There are no extra-axial fluid collections. No intracranial hemorrhage. No intracranial mass or mass effect. No midline shift. The ventricles are normal in size and position. There are no acute parenchymal abnormalities in the brain. There is a calcification in the left cerebellum which may be due to old injury. We do not have prior studies for comparison. Calvarial windows show no fracture. IMPRESSION: No acute intracranial hemorrhage or mass effect. There is an ill-defined calcification in the left cerebellar hemisphere of uncertain significance. This could be from old trauma. Suggest follow-up as clinically warranted. There is no other abnormal finding. Dictated by: Dictated on workstation # [id number]
--- OUTSIDE RECORDS SUMMARY | 2021-03-15 19:03 | XMS REPORT | Clinical Summary ---
Author Author [facility] Organization [facility] Address Unknown Phone Unavailable Care Team Providers Care Development Analyst Name Role Phone Dolly Mello RN Unavailable Unavailable Able, Naomi Silvestre DO Unavailable Marek Higuera MD PCP Source Comments Some departments are not documenting in the electronic medical record. If you d o not see the information that you expected, contact Release of Information in [facility] Information Management department at [phone] for further assistan ce in locating additional records.[facility] Allergies Comments Active Allergy Reactions Severity Noted Date Allergy recorded in SMS: CODIENE~Reactions: RASH Codeine High 03/08/2005 Allergy recorded in SMS: ERTHROMYCIN~Reactions: RASH Erythromycin High 03/08/2005 Allergy recorded in SMS: PCN~Reactions: RASH Penicillins High 03/08/2005 Medications End Date Status Medication Sig Dispensed Refills Start Date Active chlordiazePOXIDE Take 2 13 Cap 0 (LIBRIUM) 25 mg capsule capsules (50 5 mg) by mouth every eight hours for 3 doses, then take 1 capsule (25 mg) by mouth every six hours for 4 doses, then take 1 capsule (25 mg) by mouth every eight hours for 3 doses, then stop Active Problems Not on file Surgical History Surgery Date Site/Laterality Comments HX CARPAL TUNNEL RELEASE NECK SURGERY Medical History Medical History Date Comments LBP (low back pain) CHF (congestive heart failure) (HCC) Depression Cirrhosis (HCC) Social History Date Tobacco Use Types Packs/Day Years Used Current Every Day Smoker Cigarettes 2 40 Tobacco Cessation: Ready to Quit: No; Co unseling Given: Yes Comments Alcohol Use Standard Drinks/Week case of beer a day Yes 0 (1 standard drink = 0.6 o z pure alcohol) Alcohol Habits Answer Date Recorded How often do you have a drink containing alcohol? No t asked How many drinks containing alcohol do you have on No t asked a typical day when you are drinking? How often do you have six or more drinks on one Not asked occasion? Comment: case of beer a day 07/15/2014 Sex Assigned at Date Recorded Not on file Last Filed Vital Signs Reading Time Taken Comments Vital Sign 138/86 07/16/2014 4:54 AM MANAGER Blood Pressure - - Pulse 36.5 C (97.7 F) 07/15/2014 10:43 PM MANAGER Temperature - - Respiratory Rate 96% 07/16/2014 4:54 AM MANAGER Oxygen Saturation - - Inhaled Oxygen Concentration 95.3 kg (210 lb) 07/15/2014 10:43 PM MANAGER Weight - - Height - - Body Mass Index Plan of Treatment Health Maintenance Due Date Last Done Comments HIV SCREENING 1978 DTAP/TDAP VACCINES (1 - 1981 Tdap) HEPATITIS C SCREENING 1981 PHYSICAL (COMPREHENSIVE) 1981 EXAM COLORECTAL CANCER 2013 SCREENING SHINGLES RECOMBINANT 2013 VACCINE (1 of 2) INFLUENZA VACCINE 04/06/2021 Results Not on filefrom Last 3 Months Insurance Type Payer Benefit Subscriber ID Effective Phone Address Plan / Dates [place] [id number] [id number]ICA[place] resent Advance Directives 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
--- OUTSIDE RECORDS SUMMARY | 2021-03-15 19:03 | XMS REPORT | Clinical Summary ---
Author Author [facility] Organization [facility] Address Unknown Phone Unavailable Care Team Providers Care Briar Wood Sorter Name Role Phone PCP Unavailable Allergies Comments Active Allergy Reactions Severity Noted Date Allergy recorded in SMS: CODIENE~Reactions: RASH Codeine High 03/08/2005 Allergy recorded in SMS: ERTHROMYCIN~Reactions: RASH Erythromycin High 03/08/2005 Allergy recorded in SMS: PCN~Reactions: RASH Penicillins High 03/08/2005 Medications End Date Status Medication Sig Dispensed Refills Start Date Active aspirin, buffered 81 mg 1 po daily 90 tablet 0 Tab 6 Active clonazePAM (KLONOPIN) 0.5 Take 0.5 mg 0 MG tablet by mouth 2 (two) times a day as needed for anxiety. Active metoprolol tartrate TAKE 1 TABLET 60 tablet 0 08/07 (LOPRESSOR) 25 MG tablet TWICE A DAY 6 Active atorvastatin (LIPITOR) 20 TAKE 1 TABLET 30 tablet 0 MG tablet EVERY DAY 6 Active albuterol (PROAIR HFA) 90 1-2 1 Inhaler 0 mcg/actuation HFA inhaler inhalations q 6 4 hrs prn Active fluticasone (FLONASE) 50 Use 2 sprays 16 mL 0 mcg/actuation nasal spray in each 6 nostril daily. Last Rx from this office Active hydrochlorothiazide Take 1 tablet 30 tablet 0 (HYDRODIURIL) 25 MG (25 mg total) 6 tablet by mouth daily. Active gabapentin (NEURONTIN) Take 400 mg 0 400 MG capsule by mouth 3 (three) times a day. Active lisinopril Take 40 mg by 0 (PRINIVIL,ZESTRIL) 40 MG mouth daily. tablet Active sertraline (ZOLOFT) 100 Take 100 mg 0 mg tablet by mouth daily. Active ALPRAZolam (XANAX) 1 MG Take 1 mg by 0 tablet mouth 2 (two) times a day. Active oxyCODONE (ROXICODONE) 15 Take 15 mg by 0 MG immediate release mouth 2 (two) tablet times a day as needed for pain. Active oxyCODONE (OXYCONTIN) 40 Take 40 mg by 0 mg 12 hr crush-resistant mouth every tablet 12 (twelve) hours. Active tiotropium (SPIRIVA) 18 Place 18 mcg 0 mcg inhalation capsule into inhaler and inhale daily. Active Problems Patient Care Coordination Note Mr Tank Diaz is a 50 year old male admitted for COPD exacerbation. He continues on neb tx, solumedrol, and Levaquin. He is maintaining oxygen levels on room air. Problem Noted Date Depression 06/16/2018 Last Assessment & Plan: Formatting of this note might be differ ent from the original. Tearful on exam. He describes depressi on since his mother 5 years ago. Also currently going throug h difficult situation with and pending divorce, substance abuse, restr aining orders, multiple arrests. Denies suicidal/homicidal ideation at t his time. Depression has not been controlled on Zoloft at home. Plan: Consult Psychiatry for evaluation Consult Social work Continue home Zoloft Polysubstance abuse 06/16/2018 Last Assessment & Plan: Formatting of this note might be differ ent from the original. UDS positive for methamphetamines, roman os, opiates Recommend permanent cessation Chronic low back pain 06/16/2018 Last Assessment & Plan: Formatting of this note might be differ ent from the original. Was considered to be too high risk for surgery in the past due to pulmonary and cardiac function Will continue pain control with home PO Oxycodone and PRN Fentanyl for breakthrough PT Unstable angina 06/15/2018 Last Assessment & Plan: Formatting of this note might be differ ent from the original. Multiple risk factors including HTN, HL D, family history, male gender, tobacco. Has prior angiogram, but unsu re about stent placement Described exertional chest pain with as sociated dyspnea, diaphoresis 2 days ago. Not since ECG with borderline changes. Initial t rop 0.05 at OSH CXR unremarkable Plan: Trend troponin until peak Repeat ECG with pain Tele Aspirin daily. Add high-intensity stat in Start heparin gtt if troponin increasin g or develops chest pain Nitro PRN for pain Start BB if BP will allow ECHO and MPI in AM Consult cardiology Pulmonary nodule 01/16/2016 Leukocytosis 01/11/2016 Last Assessment & Plan: Formatting of this note might be differ ent from the original. WBC 9 up to 21 Likely steroid induced Afebrile CBC daily Monitor for s/sx of infection Complete COPD treatment COPD exacerbation 01/10/2016 Last Assessment & Plan: Formatting of this note might be differ ent from the original. Dyspnea, sputum production No leukocytosis on presentation Sats 92-100 on RA Sputum culture ordered but not obtained Duo nob Levaquin Steroids Tobacco cessation encouraged Acute chest pain 01/10/2016 Anxiety 01/10/2016 Tobacco abuse 01/10/2016 Last Assessment & Plan: Formatting of this note might be differ ent from the original. Cessation education Nicotine replacement PRN ETOH abuse 01/10/2016 Last Assessment & Plan: Formatting of this note might be differ ent from the original. Drinking 24 beers per day for past 2 we eks Has stopped before without DTs or seizu res Abstinence encouraged Tachycardia 01/10/2016 Transient left leg weakness 07/24/2015 Accidental fall 07/24/2015 Low back pain radiating to left lower extremity 02/2015 Bright red blood per rectum 03/14/2015 History of colon polyps 03/14/2015 Alcoholic pancreatitis 03/14/2015 COPD with emphysema 03/14/2015 Last Assessment & Plan: Formatting of this note might be differ ent from the original. With possible acute exacerbation. He i s very wheezy and dyspneic on examination. No increased sputum, or h ypoxia Home regimen includes: Symbicort and Al buterol inhalers which he uses sporadically Does not tolerated nebulizer treatments very well per his report Plan: Hold home regimen Check Sputum Cx/GS, Respiratory viral p courtney, Urine strep/legionella Start scheduled Duonebs + Pulmicort. A lbuterol PRN Prednisone burst with 40 mg x 5 days RATE Consult Pulmonology Titrate O2 to keep Sats 88-92% Esophageal reflux 12/14/2014 Essential hypertension 10/11/2014 Overview: Formatting of this note might be differ ent from the original. ICD-10 conversion L ast Assessment & Plan: Formatting of this note might be differ ent from the original. Is supposed to be on Lopressor and Alesha nopril at home. Takes sporatically due to home situation Currently normotensive Plan: Will resume Lopressor if BP will allow at decreased dose If tolerating, restart GEOFFREY as well Allergic rhinitis 10/11/2014 Overview: Formatting of this note might be differ ent from the original. ICD-10 conversion Chronic neck pain 10/11/2014 Dysphagia 10/11/2014 Overview: Formatting of this note might be differ ent from the original. ICD-10 conversion Panic attacks 10/11/2014 Insomnia 10/11/2014 Overview: Formatting of this note might be differ ent from the original. ICD-10 conversion Angina pectoris 10/11/2014 Overview: Formatting of this note might be differ ent from the original. IMO Update FB (foreign body) 11/12/2013 Erectile dysfunction of organic origin 06/14/2013 Hyperlipidemia 12/04/2012 Overview: Formatting of this note might be differ ent from the original. ICD10 L ast Assessment & Plan: Formatting of this note might be differ ent from the original. Obtain lipid panel Increase to high intensity Atorvastatin Immunizations Name Administration Dates Next Due Influenza, seasonal, 07/07/2011 injectable, preservatie free (IIV3). 15 = Influenza TIV Pneumococcal 07/07/2011 Polysaccharide 23-Valent Tdap Family History Medical History Relation Name Comments Coronary artery disease Father Heart attack Father Hyperlipidemia Father Stroke Father Breast cancer Mother Relation Name Status Comments Brother Alive Daughter Alive Father Alive Mother Sister Alive Sister Alive Son Alive Son Alive Son Alive Social History Date Tobacco Use Types Packs/Day Years Used Started: 07/07/1975 Current Every Day Smoker Cigarettes 3 Smokeless Tobacco: Never Used Tobacco Cessation: Ready to Quit: No; Co unseling Given: Yes Comments Alcohol Use Standard Drinks/Week 24 pack per day past couple weeks ( 6) Yes 0 (1 standard drink = 0.6 o z pure alcohol) Sex Assigned at Date Recorded Not on file Last Filed Vital Signs Reading Time Taken Comments Vital Sign 126/68 11/15/2019 1:47 AM CDT Blood Pressure 79 11/15/2019 1:47 AM CDT Pulse 36.6 C (97.8 F) 11/14/2019 10:52 PM CDT Temperature 18 11/15/2019 1:47 AM CDT Respiratory Rate 97% 11/15/2019 1:47 AM CDT Oxygen Saturation - - Inhaled Oxygen Concentration 97.5 kg (215 lb) 11/14/2019 10:52 PM CDT Weight 170.2 cm (5' 7") 09/10/2019 6:18 PM EQUIPMENT SERVICES ASSOCIATE Height 33.67 09/10/2019 6:18 PM EQUIPMENT SERVICES ASSOCIATE Body Mass Index Plan of Treatment Health Maintenance Due Date Last Done Comments Spirometry # 1965 Td/Tdap# 1965 Tobacco Cessation 1965 Counseling # COVID-19 Vaccine (1) 1975 Colorectal Screening via 2013 Colonoscopy Zoster Vaccine# (1 of 2) 2013 Influenza Vaccine (#1) 2021 07/07/2011 Pneumococcal Vaccine: 2028 07/07/2011 Pediatrics (0 to 5 Years) and At-Risk Patients (6 to 64 Years) (2 of 2 - PPSV23) Hepatitis C Screen Completed 09/26/2014 Results Not on filefrom Last 3 Months Insurance Type Payer Benefit Subscriber ID Effective Phone Address Plan / Dates Group [place] [id number] 2018- [employer] Present [phone] Deric Diazluis miguel Silvestre Personal/F Self [phone] [place] (Home) [place], [place] [address] Deric Diazluis miguel Silvestre Personal/F Self [address] [place] (Home) [place] [id number] Deric Diazluis miguel Silvestre Behavioral Self [phone] (Home) [place], [place] [address] Advance Directives For more information, please contact: [phone] Patient System Controller Explanation Type Date Recorded Advance Directives and Living Will Power of [employer] [employer] [facility] Care Directive Date Inactivated Comments Code Status Date Activated 06/16/2018 7:05 PM Full Code 06/15/2018 10:56 PM 01/13/2016 5:01 PM Full Code 01/10/2016 2:26 AM
--- NOTE | 2021-03-15 19:08 | Diagnostic Imaging Report ---
INDICATION: Chest pain. EXAMINATION: Frontal chest was obtained at 6:36 p.m. COMPARISON: 11/09/2020. FINDINGS: Heart and mediastinal silhouette are normal appearance. Lungs are clear except for calcified granuloma in the right base. There is no pneumothorax or pleural fluid. There is slight elevation of the left hemidiaphragm, which is unchanged. IMPRESSION: No acute process in the chest. Dictated by: Dictated on workstation # [id number]
[2021-03-15] MEDS ORDERED: fentaNYL INJ 100 MCG/2 ML AMP IVP ONE (19:15)
[2021-03-15] MEDS ORDERED: ONDANSETRON 4 MG/2 ML (SDV) Z0FRAN IVP ONE (19:15)
[2021-03-15] MEDS ORDERED: NS IV 1000 ML 1,000 ML IV SCH (19:15)
[2021-03-15 19:17] LABS: AMPHETAMINE SCREEN, URINE POSITIVE (NEGATIVE); BENZODIAZEPINES SCREEN URINE POSITIVE (NEGATIVE); COCAINE SCREEN URINE NEGATIVE (NEGATIVE); METHAMPHETAMINE SCREEN URINE S POSITIVE (NEGATIVE)
[2021-03-15 19:18] LABS: BARBITURATE SCREEN URINE NEGATIVE (NEGATIVE); CANNABINOID SCREEN, URINE NEGATIVE (NEGATIVE); METHADONE STAT NEGATIVE (NEGATIVE); OPIATE SCREEN URINE NEGATIVE (NEGATIVE); OXYCODONE STAT NEGATIVE (NEGATIVE); PROPOXYPHENE STAT NEGATIVE (NEGATIVE); TRICYCLIC ANTIDEPRESSANTS SCRE NEGATIVE (NEGATIVE)
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
[2021-03-15 19:56] LABS: HEMOGLOBIN 16.2 g/dL (13.3-17.7); MEAN CORPUSCULAR HEMOGLOBIN 31 pg (25-34); WHITE BLOOD COUNT 8.7 10^3/uL (4.3-11.0)
[2021-03-15 19:57] LABS: BASOPHILS # (AUTO) 0.1 10^3/uL (0.0-0.1); BASOPHILS % (AUTO) 1 % (0-10); EOSINOPHILS # (AUTO) 0.3 10^3/uL (0.0-0.3); EOSINOPHILS % (AUTO) 3 % (0-10); HEMATOCRIT 49 % (40-54); LYMPHOCYTES # (AUTO) 2.9 X 10^3 (1.0-4.0); LYMPHOCYTES % (AUTO) 33 % (12-44); MEAN CORPUSCULAR HGB CONC 33 g/dL (32-36); MEAN CORPUSCULAR VOLUME 93 fL (80-99); MEAN PLATELET VOLUME 9.1 fL (9.0-12.2); MONOCYTES # (AUTO) 0.8 X 10^3 (0.0-1.0); MONOCYTES % (AUTO) 9 % (0-12); NEUTROPHILS # (AUTO) 4.6 X 10^3 (1.8-7.8); NEUTROPHILS % (AUTO) 53 % (42-75); PLATELET COUNT 372 10^3/uL (130-400)
[2021-03-15 20:23] LABS: BUN/CREATININE RATIO 9; CARBON DIOXIDE 24 MMOL/L (21-32); CHLORIDE 100 MMOL/L (98-107); CREATININE SERUM 0.68 MG/DL (0.60-1.30); GFR ESTIMATED 120; POTASSIUM 3.8 MMOL/L (3.6-5.0); SODIUM 136 MMOL/L (135-145)
[2021-03-15 20:24] LABS: ALANINE AMINOTRANSFERASE 20 U/L (0-55); ALBUMIN 3.9 GM/DL (3.2-4.5); ALKALINE PHOSPHATASE 109 U/L (40-136); BILIRUBIN,TOTAL 0.5 MG/DL (0.1-1.0); GLUCOSE 108 MG/DL (70-105); TOTAL PROTEIN 7.1 GM/DL (6.4-8.2)
[2021-03-15] MEDS ORDERED: oxyCODONE/APAP 5/325MG (PERCOCET 5) TABLET PO ONE (20:45)
[2021-03-15] MEDS ORDERED: LEVE500T99 PO (20:52)
[2021-03-15] MEDS ORDERED: HYDR12.56 PO (20:52)
[2021-03-15] MEDS ORDERED: CLON2TAB PO (20:52)
[2021-03-15] MEDS ORDERED: LISI20TA26 PO (20:52)
[2021-03-15] MEDS ORDERED: METO-333 PO (20:52)
[2021-03-15] MEDS ORDERED: DICL35CA3 PO (20:52)
[2021-03-15] MEDS ORDERED: LEVO112T2 PO (20:52)
[2021-03-15] MEDS ORDERED: ALBU6.7H8 INH (20:52)
[2021-03-15 21:01] VITALS: BP 140/90
== END 2021-03-15 21:00 | disposition home or self-care (01) ==
LOC: EDUNIT# 18:33 → ER FS 18:34
DX: G40.909 Epilepsy, unspecified, not intractable, without status epilepticus (principal); F19.10 Other psychoactive substance abuse, uncomplicated; Z91.14 Patient's other noncompliance with medication regimen; I25.2 Old myocardial infarction; I11.0 Hypertensive heart disease with heart failure; I50.9 Heart failure, unspecified; G47.30 Sleep apnea, unspecified; J44.9 Chronic obstructive pulmonary disease, unspecified; E78.00 Pure hypercholesterolemia, unspecified; N40.0 Benign prostatic hyperplasia without lower urinary tract symptoms; G89.29 Other chronic pain; M54.9 Dorsalgia, unspecified; F41.9 Anxiety disorder, unspecified; F32.9 Major depressive disorder, single episode, unspecified; F17.210 Nicotine dependence, cigarettes, uncomplicated; Z87.820 Personal history of traumatic brain injury; Z79.82 Long term (current) use of aspirin; Z79.891 Long term (current) use of opiate analgesic; Z79.52 Long term (current) use of systemic steroids; Z79.899 Other long term (current) drug therapy
CPT/HCPCS: 36415; 70450; 71045; 80053; 80306; 80320; 83735; 84484; 85025